=== PATIENT | male | born 1955 | race Caucasian/White ===

== ENCOUNTER 2018-07-16 20:22 | Observation (INO) | payer MEDICARE, OTHER ==
[~2018-07-16] VITALS: Ht 165.1 cm; Wt 117.9 kg
[~2018-07-16 20:22] MED LIST: ADULT LOW DOSE81 MG PO; ALLOPURINOL300 MG PO; ASPIRIN325 MG PO; GLIMEPIRIDE2 MG PO; GLIPIZIDE5 MG PO; LOPRESSOR50 MG PO; PROCARDIA XL60 MG PO; RESTORIL15 MG PO; TRICOR48 MG PO; ZOLOFT50 MG PO
--- OUTSIDE RECORDS SUMMARY | 2018-07-16 20:25 | XMS REPORT | Clinical Summary ---
Author Author [facility] Address Unknown Phone Unavailable Care Team Providers Care Drop Wire Builder Name Role Phone Pcp, No PCP Unavailable Allergies Not on File Medications Not on file Active Problems Not on file Encounters Care Team Description Date Type Specialty Aron Ny MD Aortocoronary bypass status 07/16/2018 Office Visit Cardiac Rehabilitation Aron Ny MD Aortocoronary bypass status 07/14/2018 Office Visit Cardiac Aron Barreto MD Aortocoronary bypass status 07/11/2018 Office Visit Cardiac Rehabilitation Aron Ny MD Aortocoronary bypass status 07/09/2018 Office Visit Cardiac Rehabilitation Aron Ny MD Aortocoronary bypass status 07/07/2018 Office Visit Cardiac Rehabilitation Aron Ny MD Abnormal echocardiogram (Primary Dx) 07/04/2018 Outside Orders Central Scheduling Aron Ny MD Aortocoronary bypass status 07/02/2018 Office Visit Cardiac Rehabilitation Aron Ny MD [place], Alexander L Aortocoronary bypass status 06/30/2018 Office Visit Cardiac Rehabilitation Aron Ny MD Aortocoronary bypass status 06/23/2018 Office Visit Cardiac Aron Barreto MD Aortocoronary bypass status 06/20/2018 Office Visit Cardiac Aron Barreto MD Aortocoronary bypass status (Primary Dx) 06/20/2018 Outside Orders Central Scheduling Aron Ny MD 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 Last Filed Vital Signs Not on file Plan of Treatment Care Team Description Date Type Specialty Aron Ny MD [address] [facility] [address] [place] [address] 07/28/2018 Appointment Radiology Results Not on fileafter 07/15/2017 Insurance Payer Benefit Subscriber ID Type Phone Address Plan / Group MEDICARE MEDICARE A xxxxxxxxxxx Medicare B
--- OUTSIDE RECORDS SUMMARY | 2018-07-16 20:25 | XMS REPORT ---
Author Author [facility] Address Unknown Phone Unavailable Care Team Providers Care Salon/Spa Manager Name Role Phone Paul HAMMONDS Unavailable Unavailable Problems This patient has no known problems. Allergies, Adverse Reactions, Alerts This patient has no known allergies or adverse reactions. Medications This patient has no known medications. Results Test Description Test Time Test Comments Text Results Atomic Results Result Comments CT ABDOMEN/PELVIS W [place] [id number] Patient Name: ALEXANDER WHITE MR #: [id number] : 1955 Age/Sex: 61/M Req #: [id number] Adm Physician: Ordered by: ZAID HAMMONDS MD Report #: [id number] Location: ER Room/Bed: Procedure: [id number] CT/CT ABDOMEN/PELVIS W Exam Date: 04/22/17 Exam Time: 0855 REPORT STATUS: Signed PROCEDURE: CT ABDOMEN AND PELVIS WITH CONTRAST TECHNIQUE: The abdomen and pelvis were scanned utilizing a multidetector helical scanner from the diaphragm to the lesser trochanter after the IV administration of 100 cc of Isovue 370 and the oral administration of Gastrografin and water. Coronal and sagittal multiplanar reformations were obtained. COMPARISON: None. INDICATIONS: RECTAL BLEEDING, RED STOOL FINDINGS: LOWER THORAX: Left lung base atelectasis. No parenchymal mass. HEPATOBILIARY: No focal hepatic lesions. No biliary ductal dilatation. SPLEEN: No splenomegaly. PANCREAS: No focal masses or ductal dilatation. ADRENALS: No adrenal nodules. KIDNEYS/URETERS: No hydronephrosis, obstructing stones, or solid mass lesions. Numerous bilateral small simple cysts are present in the kidneys. 5.9 mm calculus is present in the inferior pole of the right kidney, series 2 image 44. PELVIC ORGANS/BLADDER: Unremarkable. PERITONEUM / RETROPERITONEUM: No free air or fluid. LYMPH NODES: No lymphadenopathy. VESSELS: Unremarkable. GI TRACT: No distention or wall thickening. Multiple diverticuli are present in the descending and sigmoid colon, without adjacent soft tissue inflammatory changes. Normal appendix. BONES AND SOFT TISSUES: Unremarkable. Degenerative changes of the lumbar spine. IMPRESSION: No acute abnormality of the abdomen and pelvis. Diverticulosis without evidence of diverticulitis. Polycystic kidney disease. Nonobstructing right nephrolithiasis. Dictated by: No Aleman M.D. on 04/22/2017 at 11:46 Electronically approved by: No Aleman M.D. on 04/22/2017 at 11:46 Dictated By: NO ALEMAN MD [id number] Transcribed By: SUNNY on 04/22/17 1146 COPY TO: ZAID HAMMONDS MD
--- OUTSIDE RECORDS SUMMARY | 2018-07-16 20:25 | XMS REPORT | Encounter Summary ---
Author Organization Unknown Address [address] [place] [id number] Phone [phone] Reason for Visit Medical Complaint Instructions 1. Acute sinusitis rapid flu (A+B) rapid strep group A, throat 2. Acute right otitis media amoxicillin 875 mg-potassium clavulanate 125 mg tablet 3. Body mass index 40+ - severely obese A healthy lifestyle: care instructions Discussion Note: None recorded. Plan of Care Reminders Provider Appointments None recorded. Lab Rapid Flu (A+B) 01/11/2018 [facility] Rapid Strep Group a, Throat 01/11/2018 [facility] Referral None recorded. Procedures None recorded. Surgeries None recorded. Imaging None recorded. Medications Name Start Date allopurinol 300 mg tablet amoxicillin 875 mg-potassium clavulanate 125 mg tablet Take 1 tablet every 12 hours by oral route with meals for 10 days. Aspir-Abiola 325 mg tablet,delayed release Take 1 tablet every day by oral route. fenofibrate nanocrystallized 48 mg tablet glimepiride 2 mg tablet TAKE ONE (1) TABLET(S) BY MOUTH ONCE A DAY. metoprolol tartrate 50 mg tablet Nifedical XL 60 mg tablet,extended release sertraline 50 mg tablet TAKE ONE (1) TABLET(S) BY MOUTH DAILY. temazepam 15 mg capsule TK 1 C PO QD HS Medications Administered None recorded. Vitals Height Weight BMI Blood Pressure 5 ft 5 in 250 lbs 41.6 kg/m2 112/78 mm[Hg] Lab Results Date Name Specimen Result Interpretation Description Value Range Status Address Rapid Strep Group a, Throat Result negative [facility]: [address] [place] [address] Swab Location Left and Right tonsillar pillars [facility]: [address] [place] [address] Rapid Flu (A+B) Influenza a negative [facility]: [address] [place] [address] Influenza B negative [facility]: [address] [place] [address] Allergies Code Code System Name Reaction Severity Status Onset NKDA Problems Name Status Onset Date Source Intestinal Infectious Disease Active Encounter Streptococcal Sore Throat Active Encounter Dysfunction of Eustachian Tube Active Encounter Otitis Media Active Encounter Acute Otitis Media Active Encounter Common Cold Active Encounter Acute Sinusitis Active Encounter Acute Pharyngitis Active Encounter Upper Respiratory Infection Active Encounter Procedures Date Name Performed by Removal of Tonsils Information not available Vaccine List None recorded. Social History Smoking Status Never Smoker Past Encounters 01/11/2018 Acute Sinusitis; Acute Right Otitis Media; Body Mass Index 40+ - Severely Obese Data BRIDGETTE Knowles: [address] [facility], [place] [address], Ph. History of Present Illness Cybys-Qyagzrnlid-Wdxmtrr Reported By: Patient HPI: Duration: 5days; symptoms have worsened the last 2days. Modifying factors: OTC medication. Associated Symptoms: sore throat, fever, headache Notes: received 2 cortisone injections in bilateral knee approximately 10days ago Review of Systems Basic Reported By: Patient Constitutional: Constitutional: ; felt feverish Gdsi-Tpcl-Lbwge-Throat: Ears: ear pain. Nose: nose/sinus problems. Mouth/Throat: sore throat Respiratory: Respiratory: cough Neurologic: Neurologic: headache Physical Exam Adult Basic, Adult Male Complete Reported By: Patient Constitutional: General Appearance: healthy-appearing, well-nourished, well-developed. Level of Distress: NAD. Ambulation: ambulating normally Psychiatric: Mental Status: active and alert. Orientation: to time, to place, to person Eyes: Lids and Conjunctivae: non-injected, no discharge, no pallor Xvd-Eajy-Rgpbo-Throat: Ears: no lesions on external ear, no outer ear tenderness, EACs clear, TM erythematous. Nose: no lesions on external nose, nares patent, no septal deviation, nasal passages clear, no sinus tenderness, no nasal discharge. Lips, Teeth, and Gums: no mouth or lip ulcers, no bleeding gums, normal dentition. Oropharynx: moist mucous membranes, no erythema, no exudates, tonsils not enlarged Lungs: Respiratory effort: no dyspnea, no tachypnea, no use of accessory muscles, no intercostal retractions. Auscultation: breath sounds normal, good air movement Cardiovascular: Heart Auscultation: RRR, no murmurs Musculoskeletal:: Motor Strength and Tone: normal motor strength Neurologic: Gait and Station: normal gait, normal station Skin: Inspection and palpation: no rash, no lesions, no ulcer, no abnormal nevi, no induration, no nodules; on visible skin
--- OUTSIDE RECORDS SUMMARY | 2018-07-16 20:25 | XMS REPORT | Continuity of Care Document ---
Author Author [facility] Address Unknown Phone Unavailable Problems Problem Status Onset Date Classification Date Reported Comments Source Body mass index 40+ - severely obese 01/11/2018 Diagnosis 01/11/2018 [facility] Acute right otitis media 01/11/2018 Diagnosis 01/11/2018 [facility] Acute sinusitis 01/11/2018 Diagnosis 01/11/2018 [facility] Intestinal Infectious Disease Problem 01/11/2018 [facility] Streptococcal Sore Throat Problem 01/11/2018 [facility] Dysfunction of Eustachian Tube Problem 01/11/2018 [facility] Otitis Media Problem 01/11/2018 [facility] Acute Otitis Media Problem 01/11/2018 [facility] Common Cold Problem 01/11/2018 [facility] Acute Sinusitis Problem 01/11/2018 [facility] Acute Pharyngitis Problem 01/11/2018 [facility] Upper Respiratory Infection Problem 01/11/2018 [facility] Medications Medication Details Route Status Patient Instructions Ordering Provider Order Date Source Allopurinol 300 MG Oral Tablet allopurinol 300 mg tablet Active [facility] Amoxicillin 875 MG / Clavulanate 125 MG Oral Tablet amoxicillin 875 mg-potassium clavulanate 125 mg tablet Take 1 tablet every 12 hours by oral route with meals for 10 days. Active [facility] Aspirin 325 MG Delayed Release Oral Tablet Aspir-Abiola 325 mg tablet,delayed release Take 1 tablet every day by oral route. Active [facility] Fenofibrate 48 MG Oral Tablet fenofibrate nanocrystallized 48 mg tablet Active [facility] glimepiride 2 MG Oral Tablet glimepiride 2 mg tablet TAKE ONE (1) TABLET(S) BY MOUTH ONCE A DAY. Active [facility] Metoprolol Tartrate 50 MG Oral Tablet metoprolol tartrate 50 mg tablet Active [facility] Osmotic 24 HR Nifedipine 60 MG Extended Release Oral Tablet [Nifedical] Nifedical XL 60 mg tablet,extended release Active [facility] Sertraline 50 MG Oral Tablet sertraline 50 mg tablet TAKE ONE (1) TABLET(S) BY MOUTH DAILY. Active [facility] Temazepam 15 MG Oral Capsule temazepam 15 mg capsule TK 1 C PO QD HS Active [facility] Allergies, Adverse Reactions, Alerts Substance Category Reaction Severity Reaction type Status Date Reported Comments Source Immunizations Immunization Date Given Site Status Last Updated Comments Source Results Order Name Results Value Reference Range Date Interpretation Comments Source RESULT negative 01/11/2018 [facility] SWAB LOCATION Left and Right tonsillar pillars 01/11/2018 [facility] Influenza A negative 01/11/2018 [facility] Influenza B negative 01/11/2018 [facility] Vital Signs Vital Sign Value Date Comments Source Diastolic (mm Hg) 78 01/11/2018 [facility] Height 65 01/11/2018 [facility] Systolic (mm Hg) 112 01/11/2018 [facility] Weight 250 01/11/2018 [facility] Encounters Location Location Details Encounter Type Encounter Number Reason For Visit Attending Provider ADM Date DC Date Status Source [place] - [facility] - [id number] Data [place] ARCHITECTURAL MANAGER: [address] [place] [address], Ph. [id number] Data [place] 01/11/2018 [facility] Procedures Procedure Code Date Perfomer Comments Source Removal of Tonsils 118[address] [facility]
[2018-07-16 21:07] LABS: BASOPHILS % 0.5 % (0.0-1.0); EOSINOPHILS # (AUTO) 0.1 (0.0-0.4); EOSINOPHILS % 1.4 % (0.0-6.0); HEMATOCRIT 46.8 % (38.2-49.6); HEMOGLOBIN 15.7 g/dL (14.0-18.0); LYMPHOCYTES # (AUTO) 1.1 (1.0-3.2); LYMPHOCYTES % 13.6 % (18.0-39.1); MEAN CORPUSCULAR HEMOGLOBIN 29.8 pg (28-32); MEAN CORPUSCULAR HGB CONC 33.5 g/dL (31-35); MEAN CORPUSCULAR VOLUME 88.8 fL (81-99); MONOCYTES # (AUTO) 0.7 (0.2-0.8); MONOCYTES % 8.2 % (4.4-11.3); NEUTROPHILS # (AUTO) 6.1 (2.1-6.9); NEUTROPHILS % 75.9 % (38.7-80.0); PLATELET COUNT 256 x10e3/uL (140-360); RED BLOOD COUNT 5.27 x10e6/uL (4.3-5.7); RED CELL DISTRIBUTION WIDTH 17.2 % (11.7-14.4)
[2018-07-16 21:18] LABS: INR 0.88; PROTHROMBIN TIME 12.8 seconds (11.9-14.5)
[2018-07-16 21:19] LABS: PARTIAL THROMBOPLASTIN TIME 27.5 seconds (23.8-35.5)
[2018-07-16 21:20] LABS: BILIRUBIN,URINE NEGATIVE (NEGATIVE); CLARITY,URINE CLEAR (CLEAR); COLOR,URINE YELLOW (YELLOW); KETONES,URINE NEGATIVE (NEGATIVE); LEUKOCYTE ESTERASE ,URINE NEGATIVE (NEGATIVE); NITRITE,URINE NEGATIVE (NEGATIVE); PROTEIN,URINE DIPSTICK 2+ (NEGATIVE); URINE UROBILINOGEN 0.2 mg/dL (0.2 - 1)
[2018-07-16 21:28] LABS: ALANINE AMINOTRANSFERASE 25 IU/L (0-55); ALBUMIN 3.9 g/dL (3.5-5.0); ALKALINE PHOSPHATASE 41 IU/L (40-150); ANION GAP 17.3 mmol/L (8-16); BLOOD UREA NITROGEN 25 mg/dL (7-26); BUN/CREATININE RATIO 21 (6-25); CALCIUM 9.5 mg/dL (8.4-10.2); CARBON DIOXIDE 21 mmol/L (22-29); CHLORIDE 104 mmol/L (98-107); CREATINE KINASE 100 IU/L (30-200); EST GLOMERULAR FILTRATION RATE > 60 ML/MIN (60-); GLUCOSE 148 mg/dL (74-118); POTASSIUM 4.3 mmol/L (3.5-5.1); SODIUM 138 mmol/L (136-145)
[2018-07-16 21:29] LABS: WBC,URINE (MAN) 0-5 /HPF (0-5)
[2018-07-16 21:30] LABS: EPITHELIAL CELLS,URINE RARE /LPF; HYALINE CASTS 0-1 (0-1)
--- NOTE | 2018-07-16 21:55 | Diagnostic Imaging Report ---
EXAMINATION: CHEST SINGLE (PORTABLE) INDICATION: Chest pain. COMPARISON: None FINDINGS: AP view TUBES and LINES: None. LUNGS: Lungs are well inflated. Lungs are clear. There is no evidence of pneumonia or pulmonary edema. PLEURA: No pleural effusion or pneumothorax. HEART AND MEDIASTINUM: The cardiomediastinal silhouette is unremarkable. BONES AND SOFT TISSUES: No acute osseous lesion. Median sternotomy wires. Soft tissues are unremarkable. UPPER ABDOMEN: No free air under the diaphragm. IMPRESSION: No acute thoracic abnormality. Signed by: DR. Paul Goodrich MD on 07/16/2018 9:52 PM
[2018-07-16] MEDS ORDERED: HYDROCODONE/APAP 10MG-325MG TAB PO ONE (22:45)
[2018-07-16] MEDS ORDERED: ONDANSETRON HCL INJ 2 MG/ML VIAL IV PRN (23:45)
[2018-07-16] MEDS ORDERED: HYDROCODONE/APAP 10MG-325MG TAB PO PRN (23:45)
--- OUTSIDE RECORDS SUMMARY | 2018-07-16 23:45 | XMS REPORT | Clinical Summary ---
Author Author ARMANDO [facility] Address Unknown Phone Unavailable Care Team Providers Care Digital Strategist Name Role Phone Pcp, No PCP Unavailable [...] Date Type Specialty Aron Ny MD [address] [facility] [address] [place] [address] 07/28/2018 Appointment Radiology Results Not on fileafter 07/15/2017 Insurance Payer Benefit Subscriber ID Type Phone Address Plan / Group MEDICARE MEDICARE A xxxxxxxxxxx Medicare B
[2018-07-17 00:16] VITALS: BP 179/81
--- NOTE | 2018-07-17 00:16 | NUR ---
patient is a new admit that arrived via stretcher. patient is awake and talking. patient has been helped into the bed. bed is in the lowest position and call boothe is within reach. will continue to monitor patient.
--- NOTE | 2018-07-17 00:30 | NUR ---
Patient is complaining of pain in the chest. Patient states current pain medications are not effective. Patient's blood pressure is also elevated. paged awaiting call back.
--- NOTE | 2018-07-17 02:09 | NUR ---
returned phone call. received new orders. will continue to monitor patient's patients blood pressure.
[2018-07-17] MEDS ORDERED: MORPHINE SULFATE 2 MG/ML SYR IV PRN (02:15)
[2018-07-17] MEDS ORDERED: CLONIDINE HCL 0.1 MG TAB PO PRN (02:15)
[2018-07-17] MEDS ORDERED: MORPHINE SULFATE INJ 4 MG/ML INJ IV PRN (03:00)
[2018-07-17 04:00] VITALS: BP 180/78
--- NOTE | 2018-07-17 04:00 | NUR ---
patient's blood pressure is elevated. Will medicate with prn blood pressure medication and continue to monitor patient.
[2018-07-17 07:05] LABS: CREATINE KINASE MB 1.4 ng/mL (0-5.0)
[2018-07-17 08:01] VITALS: BP 157/88
[2018-07-17] MEDS ORDERED: ASPIRIN 81 MG ENTERIC COATED PO SCH (09:00)
--- NOTE | 2018-07-17 10:04 | NUR ---
Sander Machine to bedside to discuss plan of care with patient/family. CM/SW role and care transitions discussed. Anticipated discharge plan discussed along with duration of care. CM/SW discussed patients right to make decisions in care. CM/SW work hours given. Patient lives: with [facility] Admit/Transfer: thru ED, from home POA/Emergency contact: Leona Lawtey [phone] Current/Previous Home Health: none PCP/Follow-up Care: Dr. Saldaña Current/Previous DME: none Other Services: none Employment Status: unemployed at this time; "in between jobs" Areas of Concerns: none Referral Needs: none Education Needs: none IMM/MATA given and signed (if applicable): MATA Goal for discharge: home as soon as possible; will provide transportation CM/SW left business card at the bedside with contact information. Name and number was also written on the patients whiteboard. Patient verbalized understanding of discussion. CM will follow-up with ongoing discharge and transition of care needs.
[2018-07-17 11:23] VITALS: BP 188/90
[2018-07-17 12:42] VITALS: BP 188/90
--- NOTE | 2018-07-17 14:19 | Consultation ---
DATE OF CONSULTATION: July 17, 2018 CARDIOLOGY CONSULTATION REQUESTING PHYSICIAN: Dr. Janis Saldaña. REASON FOR CONSULT: Chest pain. HISTORY OF PRESENT ILLNESS: This is a 63-year-old man with history of coronary artery disease status post 4-vessel CABG February of this year, hypertension, hyperlipidemia, and diabetes mellitus, who presents with complaints of chest pain. The patient reports he has been doing well since his bypass surgery. He is participating in cardiac rehab Saturday/Saturday/Saturday without symptoms. Yesterday evening he was sitting on the couch when he had a bout of coughing. He subsequently developed 10 out of 10 sharp pain in his right chest. He applied heat without improvement. This was not associated with shortness of breath or palpitations and is reproducible on palpation and worse with movement as well as deep inspiration. Given the pain, he presented to the ER for further evaluation. The patient denied any edema, orthopnea or PND. REVIEW OF SYSTEMS: Negative except as per HPI. PAST MEDICAL HISTORY 1. Coronary artery disease status post 4-vessel CABG February of 2018. 2. Hypertension. 3. Hyperlipidemia. 4. Diabetes mellitus. PAST SURGICAL HISTORY 1. Umbilical hernia repair. 2. Four-vessel CABG. 3. Lipoma surgery. ALLERGIES: NO KNOWN DRUG ALLERGIES. MEDICATIONS: Please see medication list. SOCIAL HISTORY: Denies tobacco, alcohol or illicit drugs. FAMILY HISTORY: Noncontributory to current illness. PHYSICAL EXAMINATION VITAL SIGNS: Temperature 97.9 degrees, pulse 68, respiratory rate 16, blood pressure 188/90, oxygen saturation 98% on room air. GENERAL: Obese gentleman in no acute distress. Awake and alert. HEENT: Normocephalic, atraumatic. Pupils equal, no scleral icterus. NECK: Supple. No thyromegaly or cervical lymphadenopathy, no carotid bruits. LUNGS: Clear to auscultation bilaterally. No wheezes or crackles. CARDIOVASCULAR: Normal rate, regular rhythm. No murmur. Normal S1 and S2. ABDOMEN: Soft, nontender. EXTREMITIES: No edema. NEURO: Nonfocal exam. ELECTROCARDIOGRAM: Normal sinus rhythm with nonspecific ST-T wave abnormalities. CHEST X-RAY: No acute thoracic abnormality. IMPRESSION 1. Chest pain, likely musculoskeletal. 2. Coronary artery disease status post 4-vessel coronary artery bypass graft February of 2018. 3. Hypertension. 4. Hyperlipidemia. 5. Diabetes mellitus. RECOMMENDATIONS: Trend cardiac enzymes to rule out myocardial infarction. Echocardiogram to evaluate for regional wall motion abnormalities as well as ejection fraction. Chest x-ray did not demonstrate any acute thoracic abnormalities. Patient's chest pain is most likely musculoskeletal in etiology given description. If echocardiogram is unremarkable and patient rules out for myocardial infarction, no further cardiac evaluation is indicated at this time. Continue home cardiac medications for blood pressure control. Thank you for this consult. We will continue to follow. Job#: [id number]
[2018-07-17 14:26] LABS: CREATINE KINASE 59 IU/L (30-200)
[2018-07-17 15:52] VITALS: BP 180/88
[2018-07-17] MEDS ORDERED: METOPROLOL TARTRATE 50 MG TAB PO SCH (17:00)
[2018-07-18] MEDS ORDERED: NIFEDIPINE CR 30 MG TAB PO SCH (09:00)
== END 2018-07-17 17:45 | disposition home or self-care (01) ==
LOC: ER 20:22 → ERHOLD 23:43 → IMCU 07-17 00:18
PROVIDERS: ADMIT Internal Medicine; ATTEND Internal Medicine
DX: R07.9 Chest pain, unspecified (principal); I25.10 Atherosclerotic heart disease of native coronary artery without angina pectoris; Z95.1 Presence of aortocoronary bypass graft; I11.9 Hypertensive heart disease without heart failure; I35.1 Nonrheumatic aortic (valve) insufficiency; E78.5 Hyperlipidemia, unspecified; E11.9 Type 2 diabetes mellitus without complications; Z79.84 Long term (current) use of oral hypoglycemic drugs; F32.9 Major depressive disorder, single episode, unspecified; Z79.82 Long term (current) use of aspirin
CPT/HCPCS: 36415 ×2; 71045; 80053; 81001; 82550 ×2; 82553 ×2; 83880; 84484 ×2; 85025; 85610; 85730; 93005; 93306; 99283; G0378 ×2; J2270

== ENCOUNTER 2020-08-01 05:24 | Observation (INO) | payer MEDICARE, OTHER ==
[~2020-08-01] VITALS: Ht 165.1 cm; Wt 111.1 kg
[~2020-08-01 05:24] MED LIST changes: +ASPIRIN CHEW81 MG PO; +BRILINTA90 MG PO; +LISINOPRIL10 MG PO; +PRAVACHOL20 MG PO
[2020-08-01] MEDS ORDERED: DEXAMETHASONE SOD PHOS 10 MG/1 ML VIAL ONE (05:51)
[2020-08-01] MEDS ORDERED: GABAPENTIN 300 MG CAP ONE (05:51)
[2020-08-01] MEDS ORDERED: CELECOXIB 200 MG CAP ONE (05:51)
[2020-08-01] MEDS ORDERED: VANCOMYCIN HCL 1,000 MG ONE (06:12)
[2020-08-01] MEDS ORDERED: TRANEXAMIC ACID 1,000 MG/10 ML ML ONE (06:13)
[2020-08-01] MEDS ORDERED: SODIUM CHLORIDE 0.9% 500ML 500 ML ONE (06:13)
[2020-08-01] MEDS ORDERED: CEFAZOLIN SOD 1 GM/NS 50ML 100 ML IV ONE (06:13)
[2020-08-01] MEDS ORDERED: ROPIVACAINE 246.25 MG, EPINEPHRINE HCL 1:1000 1ML 0.5 MG, CLONIDINE HCL 0.08 MG, KETORO... INJ ONE ×5 (07:30)
[2020-08-01] MEDS ORDERED: HYDROCODONE/APAP 5MG-325MG TAB PO PRN (08:15)
[2020-08-01] MEDS ORDERED: DOCUSATE SODIUM 100 MG CAP PO PRN (08:15)
[2020-08-01] MEDS ORDERED: ACETAMINOPHEN 650 MG SUPP PR PRN (08:15)
[2020-08-01] MEDS ORDERED: ONDANSETRON HCL INJ 2MG/ML 2ML 2 MG/ML VIAL IV PRN (08:15)
[2020-08-01] MEDS ORDERED: KETOROLAC TROMETHAMINE 30 MG/ML VIAL IV PRN (08:15)
[2020-08-01] MEDS ORDERED: DIPHENHYDRAMINE HCL INJ 50 MG/ML VIAL IV PRN (08:15)
[2020-08-01 10:15] VITALS: BP 139/85
[2020-08-01 12:00] VITALS: BP 121/68
[2020-08-01] MEDS: SODIUM CHLORIDE 0.9% 1000ML 1,000 ML IV SCH ×2 (12:43→21:51)
[2020-08-01] MEDS: CELECOXIB 200 MG CAP PO SCH ×2 (12:43→16:11)
[2020-08-01] MEDS ORDERED: SEVOFLURANE INHAL SOLN 250 ML PEN BTL ONE (12:54)
[2020-08-01] MEDS ORDERED: LIDOCAINE HCL 2% LOCAL INJ 5 ML SDV VIAL INJ ONE (12:54)
[2020-08-01] MEDS ORDERED: PROPOFOL IV EMULSION 10 MG/ML 20 ML VIAL ONE (12:54)
[2020-08-01] MEDS ORDERED: ONDANSETRON HCL INJ 2MG/ML 2ML 2 MG/ML VIAL ONE (12:54)
[2020-08-01 16:00] VITALS: BP 126/70
[2020-08-01] MEDS: CEFAZOLIN SOD 1 GM/NS 50ML 50 ML IV SCH ×2 (16:07→21:51)
[2020-08-01] MEDS: ASPIRIN 325 MG TAB PO SCH (16:32)
[2020-08-01 17:30] VITALS: BP 139/85
[2020-08-01 20:00] VITALS: BP 140/77
[2020-08-01 20:58] VITALS: BP 140/77
[2020-08-01] MEDS ORDERED: ZOLPIDEM TARTRATE 5 MG TAB PO PRN (21:00)
[2020-08-02 04:00] VITALS: BP 123/67
[2020-08-02] MEDS: CEFAZOLIN SOD 1 GM/NS 50ML 50 ML IV SCH (05:21)
[2020-08-02 05:45] LABS: HEMATOCRIT 42.4 % (38.2-49.6); HEMOGLOBIN 14.4 g/dL (14.0-18.0)
[2020-08-02] MEDS: HYDROCODONE/APAP 7.5MG-325MG 1 EA TAB PO PRN ×2 (06:12→10:41)
[2020-08-02] MEDS: SODIUM CHLORIDE 0.9% 1000ML 1,000 ML IV SCH (06:46)
[2020-08-02] MEDS ORDERED: ACETAMINOPHEN 1000 MG/100 ML IV PRN (08:15)
[2020-08-02 08:34] VITALS: BP 146/77
[2020-08-02 08:35] VITALS: BP 146/77
[2020-08-02] MEDS: ASPIRIN 325 MG TAB PO SCH (08:43)
[2020-08-02] MEDS: CELECOXIB 200 MG CAP PO SCH (08:44)
[2020-08-02] MEDS ORDERED: ONDANSETRON HCL 4 MG ORAL DISINTEGRATING TAB PO PRN (11:15)
[2020-08-02 12:00] VITALS: BP_SYST 153; BP_SYST 163; BP_DIAS 86
== END 2020-08-02 12:45 | disposition home or self-care (01) ==
LOC: OR 05:24 → PACU V 08:12 → MED/SURG 09:33
PROVIDERS: ADMIT Specialist; ATTEND Specialist
DX: M17.12 Unilateral primary osteoarthritis, left knee (principal); I10 Essential (primary) hypertension; E11.9 Type 2 diabetes mellitus without complications; Z95.5 Presence of coronary angioplasty implant and graft; Z95.1 Presence of aortocoronary bypass graft; Z83.3 Family history of diabetes mellitus; Z80.9 Family history of malignant neoplasm, unspecified; E66.01 Morbid (severe) obesity due to excess calories; Z68.41 Body mass index [BMI] 40.0-44.9, adult; Z20.828 Contact with and (suspected) exposure to other viral communicable diseases; Z01.810 Encounter for preprocedural cardiovascular examination; Z01.812 Encounter for preprocedural laboratory examination
CPT/HCPCS: 27447; 36415 ×2; 73560; 82948 ×2; 85014; 85018; 86850; 86900; 86920; 93005; 97110; 97116 ×2; 97161; C1713; C1776 ×2; G0378 ×2; J0171; J0690 ×2; J1100; J1885 ×2; J2795; J3370; J7030; J7040; U0002; J2001; J2405

== ENCOUNTER 2020-09-30 09:57 | Outpatient (RCR) | payer MEDICARE, BC | END 2020-10-02 | LOC: PT 09:57 | PROVIDERS: ATTEND Physician Assistant | DX: Z96.652 Presence of left artificial knee joint (principal); Z47.1 Aftercare following joint replacement surgery; M25.562 Pain in left knee; M25.662 Stiffness of left knee, not elsewhere classified; R26.89 Other abnormalities of gait and mobility; M62.81 Muscle weakness (generalized) ==

== ENCOUNTER 2020-10-24 09:46 | Outpatient (RCR) | payer MEDICARE, BC | END 2020-11-02 | LOC: PT 09:46 | PROVIDERS: ATTEND Physician Assistant | DX: Z47.1 Aftercare following joint replacement surgery (principal); Z96.652 Presence of left artificial knee joint; M25.562 Pain in left knee; M25.662 Stiffness of left knee, not elsewhere classified; R26.89 Other abnormalities of gait and mobility; M62.81 Muscle weakness (generalized) | CPT/HCPCS: 97139 ==

== ENCOUNTER 2020-12-06 06:07 | Observation (INO) | payer MEDICARE, BC ==
[2020-12-01 11:58] LABS: BASOPHILS % 0.4 % (0.0-1.0); EOSINOPHILS # (AUTO) 0.2 (0.0-0.4); EOSINOPHILS % 2.2 % (0.0-6.0); HEMATOCRIT 46.1 % (38.2-49.6); HEMOGLOBIN 15.2 g/dL (14.0-18.0); LYMPHOCYTES # (AUTO) 1.3 (1.0-3.2); LYMPHOCYTES % 16.2 % (18.0-39.1); MEAN CORPUSCULAR HEMOGLOBIN 31.3 pg (28-32); MEAN CORPUSCULAR VOLUME 94.9 fL (81-99); MONOCYTES # (AUTO) 0.7 (0.2-0.8); MONOCYTES % 8.9 % (4.4-11.3); NEUTROPHILS # (AUTO) 5.6 (2.1-6.9); NEUTROPHILS % 71.7 % (38.7-80.0); PLATELET COUNT 251 x10e3/uL (140-360); RED BLOOD COUNT 4.86 x10e6/uL (4.3-5.7); RED CELL DISTRIBUTION WIDTH 14.1 % (11.7-14.4)
[2020-12-01 12:12] LABS: ANION GAP 15.1 mmol/L (8-16); BLOOD UREA NITROGEN 21 mg/dL (7-26); BUN/CREATININE RATIO 24 (6-25); CALCIUM 8.6 mg/dL (8.4-10.2); CARBON DIOXIDE 22 mmol/L (22-29); CHLORIDE 108 mmol/L (98-107); CREATININE, SERUM 0.88 mg/dL (0.72-1.25); EST GLOMERULAR FILTRATION RATE > 60 ML/MIN (60-); GLUCOSE 99 mg/dL (74-118); POTASSIUM 4.1 mmol/L (3.5-5.1); SODIUM 141 mmol/L (136-145)
[~2020-12-06] VITALS: Ht 165.1 cm; Wt 109.8 kg
[~2020-12-06 06:07] MED LIST changes: +SODIUM CHLORIDE 0.9% 500ML 500 ML ONE; +TRANEXAMIC ACID 1,000 MG/10 ML ML ONE; +VANCOMYCIN HCL 1,000 MG ONE
[2020-12-06] MEDS ORDERED: CEFAZOLIN SOD 1 GM/NS 50ML 100 ML IV ONE (06:25)
[2020-12-06] MEDS ORDERED: DEXAMETHASONE SOD PHOS 10 MG/1 ML VIAL ONE (06:58)
[2020-12-06] MEDS ORDERED: GABAPENTIN 300 MG CAP ONE (06:58)
[2020-12-06] MEDS ORDERED: ROPIVACAINE 246.25 MG, EPINEPHRINE HCL 1:1000 1ML 0.5 MG, CLONIDINE HCL 0.08 MG, KETORO... INJ ONE ×5 (07:00)
[2020-12-06] MEDS ORDERED: ACETAMINOPHEN 1000 MG/100 ML 100 ML IV ONE (08:10)
[2020-12-06] MEDS ORDERED: ACETAMINOPHEN 650 MG SUPP PR PRN (09:00)
[2020-12-06] MEDS ORDERED: HYDROCODONE/APAP 5MG-325MG TAB PO PRN (09:00)
[2020-12-06] MEDS ORDERED: DIPHENHYDRAMINE HCL INJ 50 MG/ML VIAL IV PRN (09:00)
[2020-12-06] MEDS ORDERED: ZOLPIDEM TARTRATE 5 MG TAB PO PRN (09:00)
[2020-12-06] MEDS ORDERED: ONDANSETRON HCL INJ 2MG/ML 2ML 2 MG/ML VIAL IV PRN (09:00)
[2020-12-06] MEDS ORDERED: DOCUSATE SODIUM 100 MG CAP PO PRN (09:00)
[2020-12-06] MEDS: ASPIRIN 325 MG TAB PO SCH ×2 (09:00→18:16)
[2020-12-06] MEDS ORDERED: FENTANYL CITRATE/PF 100MCG/2 ML INJ ONE (09:42)
[2020-12-06] MEDS ORDERED: LABETALOL HCL 20 ML ONE (10:02)
[2020-12-06] MEDS ORDERED: ROPIVACAINE 0.5% 5 MG/ML 30 ML SDV ONE (12:36)
[2020-12-06] MEDS ORDERED: LIDOCAINE 2%/ EPINEPHRINE 20ML MDV ONE (12:36)
[2020-12-06 14:00] VITALS: BP_SYST 124; BP_SYST 140; BP_DIAS 65; BP_DIAS 81
[2020-12-06 14:30] VITALS: BP 140/81
[2020-12-06] MEDS ORDERED: KETOROLAC TROMETHAMINE 30 MG/ML VIAL ONE (15:19)
[2020-12-06] MEDS ORDERED: SODIUM CHLORIDE 0.9% 1000ML 1,000 ML ONE (15:19)
[2020-12-06] MEDS: KETOROLAC TROMETHAMINE 30 MG/ML VIAL IV PRN (15:21)
[2020-12-06] MEDS: SODIUM CHLORIDE 0.9% 1000ML 1,000 ML IV SCH ×2 (15:21→19:00)
[2020-12-06 16:00] VITALS: BP 119/69
[2020-12-06] MEDS: CEFAZOLIN SOD 1 GM/NS 50ML 50 ML IV SCH (18:16)
[2020-12-06] MEDS ORDERED: SEVOFLURANE INHAL SOLN 250 ML PEN BTL ONE (19:22)
[2020-12-06] MEDS ORDERED: ONDANSETRON HCL INJ 2MG/ML 2ML 2 MG/ML VIAL ONE (19:22)
[2020-12-06] MEDS ORDERED: PROPOFOL IV EMULSION 10 MG/ML 20 ML VIAL ONE (19:22)
[2020-12-06] MEDS ORDERED: LIDOCAINE HCL 2% LOCAL INJ 5 ML SDV VIAL INJ ONE (19:22)
[2020-12-06] MEDS ORDERED: POVIDONE IODINE 0.05% 0.05 % ML PO ONE (19:22)
[2020-12-06] MEDS ORDERED: EPHEDRINE SULFATE INJ 50 MG/ML VIAL ONE (19:22)
[2020-12-06] MEDS ORDERED: CEPACOL SORE T1 EAC5 PO (20:42)
[2020-12-06 20:43] VITALS: BP 108/54
[2020-12-06 20:57] VITALS: BP 108/54
[2020-12-06] MEDS ORDERED: SERTRALINE HCL 50 MG TAB PO SCH (21:00)
[2020-12-06] MEDS ORDERED: PRAVASTATIN 20 MG TAB PO SCH (21:00)
[2020-12-06] MEDS ORDERED: TEMAZEPAM 15 MG CAP PO SCH (21:00)
[2020-12-06] MEDS ORDERED: ALLOPURINOL 300 MG TAB PO SCH (21:00)
[2020-12-06] MEDS: METOPROLOL TARTRATE 50 MG TAB PO SCH (21:35)
[2020-12-06] MEDS: CEPACOL SORE THROAT LOZENGES PO PRN (22:10)
[2020-12-06] MEDS: HYDROCODONE/APAP 7.5MG-325MG 1 EA TAB PO PRN (23:53)
[2020-12-07] VITALS: BP 106/48
[2020-12-07] MEDS: CEPACOL SORE THROAT LOZENGES PO PRN (01:27)
[2020-12-07] MEDS: CEFAZOLIN SOD 1 GM/NS 50ML 50 ML IV SCH ×2 (01:27→08:11)
[2020-12-07] MEDS: SODIUM CHLORIDE 0.9% 1000ML 1,000 ML IV SCH (03:04)
[2020-12-07 04:00] VITALS: BP 127/72
[2020-12-07 05:48] LABS: HEMATOCRIT 38.9 % (38.2-49.6); HEMOGLOBIN 12.9 g/dL (14.0-18.0)
[2020-12-07] MEDS: HYDROCODONE/APAP 7.5MG-325MG 1 EA TAB PO PRN (06:31)
[2020-12-07 08:00] VITALS: BP 141/80
[2020-12-07] MEDS: METOPROLOL TARTRATE 50 MG TAB PO SCH (08:14)
[2020-12-07] MEDS: ASPIRIN 325 MG TAB PO SCH (08:14)
[2020-12-07 08:15] VITALS: BP 141/86
[2020-12-07] MEDS ORDERED: TICAGRELOR 90 MG TABLET PO SCH (09:00)
[2020-12-07] MEDS ORDERED: GLIMEPIRIDE 2 MG TAB PO SCH (09:00)
[2020-12-07] MEDS ORDERED: ACETAMINOPHEN 1000 MG/100 ML IV PRN (09:00)
[2020-12-07] MEDS ORDERED: LISINOPRIL 10 MG TAB PO SCH (09:00)
[2020-12-07] MEDS: KETOROLAC TROMETHAMINE 30 MG/ML VIAL IV PRN (09:36)
[2020-12-07] MEDS ORDERED: ONDANSETRON HCL 4 MG ORAL DISINTEGRATING TAB PO PRN (12:30)
== END 2020-12-07 12:29 | disposition home or self-care (01) ==
LOC: OR 06:07 → PACU V 08:53 → MED/SURG 14:30
PROVIDERS: ADMIT Specialist; ATTEND Specialist
DX: M17.0 Bilateral primary osteoarthritis of knee (principal); I25.2 Old myocardial infarction; I25.10 Atherosclerotic heart disease of native coronary artery without angina pectoris; M10.9 Gout, unspecified; E11.9 Type 2 diabetes mellitus without complications; Z20.822 Contact with and (suspected) exposure to COVID-19; I10 Essential (primary) hypertension; Z95.1 Presence of aortocoronary bypass graft; Z01.818 Encounter for other preprocedural examination
CPT/HCPCS: 27447; 36415 ×3; 73560; 80048; 82948 ×2; 85014; 85018; 85025; 86850; 86900; 86920; 93005; 97110; 97116 ×2; 97161; 97530; C1713 ×2; C1776 ×2; G0378 ×2; J0131; J0171; J0690 ×2; J1100; J1885 ×2; J2001 ×2; J2405; J2704; J2795; J3010; J3370; J3490; J7030; J7040; U0002

== ENCOUNTER → 2021-02-01 | Outpatient (RCR) | payer MEDICARE, BC ==
[~2021-02-01] MED LIST changes: +CEPACOL SORE T1 EAC5 PO; -SODIUM CHLORIDE 0.9% 500ML 500 ML ONE; -TRANEXAMIC ACID 1,000 MG/10 ML ML ONE; -VANCOMYCIN HCL 1,000 MG ONE
== END ==
LOC: PT 01-05 14:03
PROVIDERS: ATTEND Physician Assistant
DX: Z47.1 Aftercare following joint replacement surgery (principal); Z96.651 Presence of right artificial knee joint

== ENCOUNTER 2021-03-03 13:42 | Outpatient (RCR) | payer MEDICARE, BC | END 2021-03-04 | LOC: PT 13:42 | PROVIDERS: ATTEND Physician Assistant | DX: Z96.651 Presence of right artificial knee joint (principal); Z47.1 Aftercare following joint replacement surgery; M25.561 Pain in right knee; M62.81 Muscle weakness (generalized) | CPT/HCPCS: 97139 ==

== ENCOUNTER → 2023-06-04 | Day surgery (SDC) | payer MEDICARE ==
[2023-05-30 08:29] LABS: BASOPHILS % 0.4 % (0.0-1.0); EOSINOPHILS # (AUTO) 0.1 (0.0-0.4); EOSINOPHILS % 1.5 % (0.0-6.0); HEMATOCRIT 43.1 % (38.2-49.6); HEMOGLOBIN 15.4 g/dL (14.0-18.0); LYMPHOCYTES # (AUTO) 0.9 (1.0-3.2); MEAN CORPUSCULAR HEMOGLOBIN 32.8 pg (28-32); MEAN CORPUSCULAR HGB CONC 35.7 g/dL (31-35); MEAN CORPUSCULAR VOLUME 91.9 fL (81-99); MONOCYTES # (AUTO) 0.7 (0.2-0.8); MONOCYTES % 8.5 % (4.4-11.3); NEUTROPHILS # (AUTO) 6.1 (2.1-6.9); PLATELET COUNT 264 x10e3/uL (140-360); RED BLOOD COUNT 4.69 x10e6/uL (4.3-5.7); RED CELL DISTRIBUTION WIDTH 13.9 % (11.7-14.4); WHITE BLOOD COUNT 7.79 x10e3/uL (4.8-10.8)
[~2023-06-04] MED LIST changes: +FENTANYL CITRATE/PF 100MCG/2 ML INJ ONE; +LACTATED RINGER'S 1,000 ML ONE; +MIDAZOLAM HCL 2 MG/2 ML VIAL ONE; +MULTI-VITAMIN1 EACH PO; +TEMAZEPAM15 MG PO
[2023-06-04 11:03] VITALS: TEMP 97.4
[2023-06-04 11:15] VITALS: BP 178/70; PULSE 70; RESP 16; O2SAT 97
== END | disposition home or self-care (01) ==
LOC: OR 08:05
PROVIDERS: ATTEND Ophthalmology
DX: H25.12 Age-related nuclear cataract, left eye (principal); I25.810 Atherosclerosis of coronary artery bypass graft(s) without angina pectoris; I10 Essential (primary) hypertension; E11.9 Type 2 diabetes mellitus without complications; E66.01 Morbid (severe) obesity due to excess calories; F32.A Depression, unspecified; Z01.812 Encounter for preprocedural laboratory examination; Z79.82 Long term (current) use of aspirin; Z79.84 Long term (current) use of oral hypoglycemic drugs; Z95.1 Presence of aortocoronary bypass graft; Z95.5 Presence of coronary angioplasty implant and graft
CPT/HCPCS: 36415 ×2; 66984; 82948; 85025; J2250; J3010; J7121; V2632

== ENCOUNTER → 2024-07-20 | Outpatient (REF) | payer MEDICARE ==
[~2024-07-20] MED LIST changes: -FENTANYL CITRATE/PF 100MCG/2 ML INJ ONE; -LACTATED RINGER'S 1,000 ML ONE; -MIDAZOLAM HCL 2 MG/2 ML VIAL ONE
== END ==
LOC: RAD 14:44
PROVIDERS: ATTEND Internal Medicine
DX: R05.9 Cough, unspecified (principal)
CPT/HCPCS: 71046

== ENCOUNTER 2024-09-25 17:52 | Inpatient (IN) | payer MEDICARE ==
[~2024-09-25] VITALS: Ht 165.1 cm; Wt 122.5 kg
[2024-09-25] MEDS ORDERED: SODIUM CHLORIDE 0.9% 1000ML 1,000 ML IV SCH (18:30)
[2024-09-25] MEDS ORDERED: ACETAMINOPHEN 325 MG TAB PO ONE (18:30)
[2024-09-25 18:38] LABS: BASOPHILS % 0.2 % (0.0-1.0); HEMATOCRIT 45.6 % (38.2-49.6); HEMOGLOBIN 15.5 g/dL (14.0-18.0); LYMPHOCYTES # (AUTO) 0.2 (1.0-3.2); LYMPHOCYTES % 4.8 % (18.0-39.1); MEAN CORPUSCULAR HEMOGLOBIN 32.1 pg (28-32); MEAN CORPUSCULAR VOLUME 94.4 fL (81-99); MONOCYTES % 0.4 % (4.4-11.3); NEUTROPHILS # (AUTO) 4.4 (2.1-6.9); NEUTROPHILS % 94.2 % (38.7-80.0); PLATELET COUNT 217 x10e3/uL (140-360); RED BLOOD COUNT 4.83 x10e6/uL (4.3-5.7); RED CELL DISTRIBUTION WIDTH 13.6 % (11.7-14.4); WHITE BLOOD COUNT 4.63 x10e3/uL (4.8-10.8)
[2024-09-25 18:48] LABS: PROTHROMBIN TIME 13.8 seconds (11.9-14.5)
[2024-09-25 18:49] LABS: PARTIAL THROMBOPLASTIN TIME 23.2 seconds (23.8-35.5)
[2024-09-25 18:58] LABS: ALBUMIN 4.2 g/dL (3.5-5.0); ALBUMIN/GLOBULIN RATIO 1.2 (0.8-2.0); ANION GAP 18.3 mmol/L (8-16); BILIRUBIN,TOTAL 0.8 mg/dL (0.2-1.2); CALCIUM 9.9 mg/dL (8.4-10.2); CREATININE, SERUM 1.38 mg/dL (0.72-1.25); POTASSIUM 4.3 mmol/L (3.5-5.1); TOTAL PROTEIN 7.8 g/dL (6.5-8.1)
[2024-09-25] MEDS ORDERED: IOPAMIDOL 370 MG/ML 100 ML INFUS..BTL INJ ONE (19:02)
[2024-09-25] MEDS: ONDANSETRON HCL INJ 2MG/ML 2ML 2 MG/ML VIAL IV STA (19:07)
[2024-09-25] MEDS: ACETAMINOPHEN 1000 MG/100 ML IV ONE (19:08)
[2024-09-25] MEDS: SODIUM CHLORIDE 0.9% IV ONE (19:09)
[2024-09-25] MEDS ORDERED: SODIUM CHLORIDE 0.9% 500ML 500 ML ONE (19:10)
[2024-09-25] MEDS: Morphine 4mg INJECTION 4 MG/ML INJ IV ONE (19:48)
[2024-09-25] MEDS ORDERED: DEXTROSE 50% SYRINGE 50 ML IV PRN (21:45)
[2024-09-25] MEDS ORDERED: ACETAMINOPHEN 1000 MG/100 ML IV PRN (21:45)
[2024-09-25 22:00] LABS: INFLUENZA A AG NEGATIVE (NEGATIVE)
[2024-09-25 22:01] LABS: CORONAVIRUS COVID-19 AG NEGATIVE (NEGATIVE); INFLUENZA B AG NEGATIVE (NEGATIVE)
[2024-09-25 22:04] LABS: BILIRUBIN,URINE NEGATIVE (NEGATIVE); CLARITY,URINE CLEAR (CLEAR); COLOR,URINE YELLOW (YELLOW); GLUCOSE, URINE NEGATIVE (NEGATIVE); KETONES,URINE NEGATIVE (NEGATIVE); LEUKOCYTE ESTERASE ,URINE NEGATIVE (NEGATIVE); NITRITE,URINE NEGATIVE (NEGATIVE); PH,URINE 5.5 (5 - 7); PROTEIN,URINE DIPSTICK 2+ (NEGATIVE); URINE UROBILINOGEN 0.2 mg/dL (0.2 - 1)
[2024-09-25 22:05] VITALS: PULSE 108; RESP 18; O2SAT 95
[2024-09-25] MEDS ORDERED: ONDANSETRON HCL INJ 2MG/ML 2ML 2 MG/ML VIAL IV PRN (22:15)
[2024-09-25 22:24] LABS: BACTERIA,URINE MANY /HPF; EPITHELIAL CELLS,URINE FEW /LPF
[2024-09-25] MEDS ORDERED: Morphine 2mg Syringe 2 MG/ML SYR IV PRN (22:30)
[2024-09-25] MEDS: METRONIDAZOLE 500MG/NS 100ML 100 ML IV SCH (22:30)
[2024-09-25] MEDS: SODIUM CHLORIDE 0.9% 1000ML 1,000 ML IV SCH (22:30)
[2024-09-25 23:00] VITALS: PULSE 109; RESP 17; TEMP 99.8
[2024-09-25 23:25] VITALS: BP 98/64; PULSE 108; RESP 18; RESP 22; TEMP 99; O2SAT 97
[2024-09-25 23:30] VITALS: BP 98/64; PULSE 108; RESP 18; TEMP 99; O2SAT 97
[2024-09-26] VITALS (10 sets, daily range): BP systolic 99–183; BP diastolic 57–122; PULSE 72–97; RESP 16–20; TEMP 97.7–98.8; O2SAT 96–100
[2024-09-26 08:08] LABS: BASOPHILS # (AUTO) 0.1 (0.0-0.1); BASOPHILS % 0.4 % (0.0-1.0); EOSINOPHILS % 18.5 % (0.0-6.0); HEMOGLOBIN 12.8 g/dL (14.0-18.0); LYMPHOCYTES # (AUTO) 0.1 (1.0-3.2); LYMPHOCYTES % 0.6 % (18.0-39.1); MEAN CORPUSCULAR HEMOGLOBIN 32.6 pg (28-32); MEAN CORPUSCULAR HGB CONC 33.7 g/dL (31-35); MEAN CORPUSCULAR VOLUME 96.7 fL (81-99); MONOCYTES # (AUTO) 0.4 (0.2-0.8); MONOCYTES % 1.8 % (4.4-11.3); NEUTROPHILS # (AUTO) 16.6 (2.1-6.9); NEUTROPHILS % 76.3 % (38.7-80.0); PLATELET COUNT 171 x10e3/uL (140-360); RED BLOOD COUNT 3.93 x10e6/uL (4.3-5.7); RED CELL DISTRIBUTION WIDTH 14.1 % (11.7-14.4); WHITE BLOOD COUNT 21.75 x10e3/uL (4.8-10.8)
[2024-09-26] MEDS: INSULIN REGULAR, HUMAN 100 UNIT/1 ML SQ SCH (08:11)
[2024-09-26 08:45] LABS: ALBUMIN/GLOBULIN RATIO 1.1 (0.8-2.0); ANION GAP 17.5 mmol/L (8-16); BILIRUBIN,TOTAL 0.6 mg/dL (0.2-1.2); CALCIUM 8.4 mg/dL (8.4-10.2); CREATININE, SERUM 1.5 mg/dL (0.72-1.25); POTASSIUM 4.5 mmol/L (3.5-5.1); TOTAL PROTEIN 5.8 g/dL (6.5-8.1)
[2024-09-26] MEDS ORDERED: METOPROLOL TARTRATE INJ 1 MG/ML VIAL IV PRN (09:15)
[2024-09-26] MEDS ORDERED: HYDRALAZINE HCL 20 MG/ML VIAL IV PRN (09:15)
[2024-09-26] MEDS: INSULIN GLARGINE 100 UNITS/ML VIAL SQ ONE (09:51)
[2024-09-26] MEDS: INSULIN LISPRO 100 UNIT/1 ML 3ML VIAL SQ ONE (09:52)
[2024-09-26] MEDS ORDERED: FENTANYL CITRATE/PF 100MCG/2 ML INJ ONE ×2 (12:09→13:00)
[2024-09-26] MEDS ORDERED: LIDOCAINE HCL 2% LOCAL INJ 5 ML SDV VIAL INJ ONE (12:09)
[2024-09-26] MEDS ORDERED: PROPOFOL IV EMULSION 10 MG/ML 20 ML VIAL ONE (12:09)
[2024-09-26] MEDS ORDERED: ROCURONIUM BROMIDE 1 ML IV ONE (12:09)
[2024-09-26] MEDS ORDERED: ONDANSETRON HCL INJ 2MG/ML 2ML 2 MG/ML VIAL ONE (12:36)
[2024-09-26] MEDS ORDERED: METOCLOPRAMIDE HCL 10 MG/2ML VIAL ONE (12:36)
[2024-09-26] MEDS ORDERED: ACETAMINOPHEN 1000 MG/100 ML 100 ML IV ONE (12:36)
[2024-09-26] MEDS ORDERED: SUGAMMADEX SODIUM 200 MG/2 ML VIAL IV ONE (12:59)
[2024-09-26] MEDS ORDERED: Morphine 2mg Syringe 2 MG/ML SYR IV PRN (14:30)
[2024-09-26] MEDS: LISINOPRIL 10 MG TAB PO SCH (17:04)
[2024-09-26] MEDS: METOPROLOL TARTRATE 50 MG TAB PO SCH (17:04)
[2024-09-26] MEDS: PRAVASTATIN 20 MG TAB PO SCH (21:18)
[2024-09-26] MEDS: SERTRALINE HCL 50 MG TAB PO SCH (21:18)
[2024-09-26] MEDS: ALLOPURINOL 300 MG TAB PO SCH (21:18)
[2024-09-26] MEDS: TEMAZEPAM 15 MG CAP PO SCH (21:18)
[2024-09-27] VITALS (10 sets, daily range): BP systolic 118–168; BP diastolic 74–89; PULSE 65–85; RESP 17–21; TEMP 97.8–98.5; O2SAT 96–99
[2024-09-27 10:59] LABS: BASOPHILS % 0.3 % (0.0-1.0); EOSINOPHILS # (AUTO) 0.1 (0.0-0.4); EOSINOPHILS % 0.9 % (0.0-6.0); HEMATOCRIT 36.7 % (38.2-49.6); HEMOGLOBIN 12.2 g/dL (14.0-18.0); LYMPHOCYTES # (AUTO) 0.5 (1.0-3.2); LYMPHOCYTES % 4.5 % (18.0-39.1); MEAN CORPUSCULAR HEMOGLOBIN 31.9 pg (28-32); MEAN CORPUSCULAR HGB CONC 33.2 g/dL (31-35); MEAN CORPUSCULAR VOLUME 95.8 fL (81-99); MONOCYTES # (AUTO) 0.4 (0.2-0.8); MONOCYTES % 3.7 % (4.4-11.3); NEUTROPHILS # (AUTO) 10.3 (2.1-6.9); NEUTROPHILS % 89.8 % (38.7-80.0); PLATELET COUNT 129 x10e3/uL (140-360); RED BLOOD COUNT 3.83 x10e6/uL (4.3-5.7); RED CELL DISTRIBUTION WIDTH 14.7 % (11.7-14.4); WHITE BLOOD COUNT 11.49 x10e3/uL (4.8-10.8)
[2024-09-27 11:17] LABS: ANION GAP 11.9 mmol/L (8-16); CALCIUM 7.8 mg/dL (8.4-10.2); CREATININE, SERUM 1.26 mg/dL (0.72-1.25); POTASSIUM 3.9 mmol/L (3.5-5.1)
[2024-09-27] MEDS ORDERED: SEVOFLURANE INHAL SOLN 250 ML PEN BTL ONE (13:04)
[2024-09-28] VITALS (10 sets, daily range): BP systolic 133–165; BP diastolic 70–97; PULSE 63–85; RESP 18–22; TEMP 97.9–99.4; O2SAT 96–100
[2024-09-28 06:54] LABS: BASOPHILS % 0.3 % (0.0-1.0); EOSINOPHILS # (AUTO) 0.1 (0.0-0.4); EOSINOPHILS % 0.8 % (0.0-6.0); HEMATOCRIT 35.7 % (38.2-49.6); HEMOGLOBIN 11.9 g/dL (14.0-18.0); LYMPHOCYTES # (AUTO) 0.6 (1.0-3.2); LYMPHOCYTES % 5.8 % (18.0-39.1); MEAN CORPUSCULAR HEMOGLOBIN 31.7 pg (28-32); MEAN CORPUSCULAR HGB CONC 33.3 g/dL (31-35); MEAN CORPUSCULAR VOLUME 95.2 fL (81-99); MONOCYTES # (AUTO) 0.5 (0.2-0.8); NEUTROPHILS # (AUTO) 9.5 (2.1-6.9); NEUTROPHILS % 87.3 % (38.7-80.0); PLATELET COUNT 128 x10e3/uL (140-360); RED BLOOD COUNT 3.75 x10e6/uL (4.3-5.7); RED CELL DISTRIBUTION WIDTH 14.5 % (11.7-14.4); WHITE BLOOD COUNT 10.83 x10e3/uL (4.8-10.8)
[2024-09-28 07:23] LABS: ANION GAP 11.9 mmol/L (8-16); CALCIUM 8.2 mg/dL (8.4-10.2); CREATININE, SERUM 0.97 mg/dL (0.72-1.25); POTASSIUM 3.9 mmol/L (3.5-5.1)
[2024-09-28] MEDS: GLIMEPIRIDE 2 MG TAB PO SCH (17:18)
[2024-09-28] MEDS: INSULIN GLARGINE 100 UNITS/ML VIAL SQ ONE ×2 (17:19→17:24)
[2024-09-29] VITALS: BP 128/62; PULSE 61; RESP 20; TEMP 97.9; O2SAT 100
[2024-09-29 04:00] VITALS: BP 144/73; PULSE 62; RESP 20; TEMP 96; O2SAT 97
[2024-09-29 06:53] LABS: BASOPHILS % 0.4 % (0.0-1.0); EOSINOPHILS # (AUTO) 0.1 (0.0-0.4); HEMATOCRIT 35.1 % (38.2-49.6); HEMOGLOBIN 11.7 g/dL (14.0-18.0); LYMPHOCYTES % 10.9 % (18.0-39.1); MEAN CORPUSCULAR HEMOGLOBIN 31.5 pg (28-32); MEAN CORPUSCULAR HGB CONC 33.3 g/dL (31-35); MEAN CORPUSCULAR VOLUME 94.4 fL (81-99); MONOCYTES # (AUTO) 0.6 (0.2-0.8); MONOCYTES % 7.2 % (4.4-11.3); NEUTROPHILS % 78.6 % (38.7-80.0); PLATELET COUNT 136 x10e3/uL (140-360); RED BLOOD COUNT 3.72 x10e6/uL (4.3-5.7); RED CELL DISTRIBUTION WIDTH 14.4 % (11.7-14.4); WHITE BLOOD COUNT 8.95 x10e3/uL (4.8-10.8)
[2024-09-29 07:26] LABS: ANION GAP 13.8 mmol/L (8-16); CREATININE, SERUM 0.86 mg/dL (0.72-1.25); POTASSIUM 3.8 mmol/L (3.5-5.1)
[2024-09-29 08:09] VITALS: PULSE 79; RESP 20; O2SAT 96
[2024-09-29 08:57] VITALS: BP 155/80; PULSE 63; RESP 20; TEMP 98.1; O2SAT 98
[2024-09-29 09:00] VITALS: BP 155/80; PULSE 63; RESP 20; TEMP 98.1; O2SAT 98
[2024-09-29 09:49] VITALS: BP 155/80; PULSE 63
== END 2024-09-29 11:40 | disposition home or self-care (01) | DRG 853 ==
LOC: ER 18:20 → ERHOLD 21:41 → MED/SURG3 22:29
PROVIDERS: ADMIT Internal Medicine; ATTEND Internal Medicine
PROC: 3E03329 Introduction of Other Anti-infective into Peripheral Vein, Percutaneous Approach (ICD-10-PCS; 2024-09-25)
PROC: 0DTJ4ZZ Resection of Appendix, Percutaneous Endoscopic Approach (ICD-10-PCS; principal; 2024-09-26 12:15)
DX: A41.89 Other specified sepsis (principal); K35.33 Acute appendicitis with perforation, localized peritonitis, and gangrene, with abscess; R65.21 Severe sepsis with septic shock; E87.20 Acidosis, unspecified; N39.0 Urinary tract infection, site not specified; N20.1 Calculus of ureter; K86.2 Cyst of pancreas; B96.89 Other specified bacterial agents as the cause of diseases classified elsewhere; I12.9 Hypertensive chronic kidney disease with stage 1 through stage 4 chronic kidney disease, or unspecified chronic kidney disease; E11.22 Type 2 diabetes mellitus with diabetic chronic kidney disease; N18.9 Chronic kidney disease, unspecified; Z79.84 Long term (current) use of oral hypoglycemic drugs; I25.10 Atherosclerotic heart disease of native coronary artery without angina pectoris; Z95.1 Presence of aortocoronary bypass graft; Z95.5 Presence of coronary angioplasty implant and graft; M10.9 Gout, unspecified; F41.8 Other specified anxiety disorders; M19.91 Primary osteoarthritis, unspecified site; K86.9 Disease of pancreas, unspecified; Z79.02 Long term (current) use of antithrombotics/antiplatelets; Z79.82 Long term (current) use of aspirin; Z79.899 Other long term (current) drug therapy
CPT/HCPCS: 36415; 71045; 74177; 80048; 80053; 81001; 82948; 83036; 83605; 85025; 85610; 85730; 87040; 87071; 87086; 87205; 88304; 93005; 94799; 99284; J1815; J2003; J2270; J2405; J2470; J2543; J2765; J7030; J7040; Q9967

== ENCOUNTER 2024-12-06 11:06 | Emergency (ER) | payer MEDICARE ==
[~2024-12-06] VITALS: Ht 165.1 cm; Wt 97.2 kg
[2024-12-06] MEDS ORDERED: CEFUROXIME500 MG PO (13:04)
[2024-12-06 13:17] VITALS: PULSE 59; RESP 17; TEMP 98.1; O2SAT 95
== END 2024-12-06 13:17 | disposition home or self-care (01) ==
LOC: FSED 11:32
DX: R31.9 Hematuria, unspecified (principal); N20.2 Calculus of kidney with calculus of ureter; N39.0 Urinary tract infection, site not specified; R10.32 Left lower quadrant pain; E11.65 Type 2 diabetes mellitus with hyperglycemia; I10 Essential (primary) hypertension; I25.10 Atherosclerotic heart disease of native coronary artery without angina pectoris; M19.09 Primary osteoarthritis, other specified site; M10.9 Gout, unspecified; G47.00 Insomnia, unspecified; F41.9 Anxiety disorder, unspecified; F32.A Depression, unspecified; Z95.1 Presence of aortocoronary bypass graft; Z95.5 Presence of coronary angioplasty implant and graft
CPT/HCPCS: 74176; 80048; 81003; 85025; 99283

== ENCOUNTER 2024-12-17 11:07 | Emergency (ER) | payer MEDICARE ==
[~2024-12-17] VITALS: Ht 165.1 cm; Wt 95.4 kg
[~2024-12-17 11:07] MED LIST changes: +CEFUROXIME500 MG PO
[2024-12-17 11:15] VITALS: PULSE 68; RESP 20; TEMP 98.3
[2024-12-17] MEDS ORDERED: IOPAMIDOL 370 MG/ML 100 ML INFUS..BTL INJ ONE (12:22)
[2024-12-17] MEDS: KETOROLAC TROMETHAMINE 30 MG/ML VIAL IV STA (12:28)
[2024-12-17] MEDS ORDERED: ACETAMINOPHEN-1 EAC3 PO (15:36)
[2024-12-17 15:48] VITALS: BP 166/77; PULSE 56; RESP 20; O2SAT 96
== END 2024-12-17 15:47 | disposition home or self-care (01) ==
LOC: FSED 11:10
DX: R10.32 Left lower quadrant pain (principal); N20.0 Calculus of kidney; K57.30 Diverticulosis of large intestine without perforation or abscess without bleeding; K76.0 Fatty (change of) liver, not elsewhere classified; E11.65 Type 2 diabetes mellitus with hyperglycemia; I10 Essential (primary) hypertension; I25.10 Atherosclerotic heart disease of native coronary artery without angina pectoris; M10.9 Gout, unspecified; G47.00 Insomnia, unspecified; F41.9 Anxiety disorder, unspecified; F32.A Depression, unspecified
CPT/HCPCS: 74160; 80053; 81003; 85025; 99283; J1885; Q9967

== ENCOUNTER 2025-01-06 15:57 | Inpatient (IN) | payer MEDICARE ==
[~2025-01-06] VITALS: Ht 165.1 cm; Wt 95.3 kg
[~2025-01-06 15:57] MED LIST changes: +ACETAMINOPHEN-1 EAC3 PO; +SEVOFLURANE INHAL SOLN 250 ML PEN BTL ONE
[2025-01-06 18:48] LABS: BASOPHILS % 0.4 % (0.0-1.0); EOSINOPHILS % 0.5 % (0.0-6.0); HEMOGLOBIN 15.4 g/dL (14.0-18.0); LYMPHOCYTES # (AUTO) 0.6 (1.0-3.2); LYMPHOCYTES % 8.1 % (18.0-39.1); MEAN CORPUSCULAR HGB CONC 34.2 g/dL (31-35); MEAN CORPUSCULAR VOLUME 93.4 fL (81-99); MONOCYTES # (AUTO) 0.5 (0.2-0.8); MONOCYTES % 6.4 % (4.4-11.3); NEUTROPHILS # (AUTO) 6.3 (2.1-6.9); NEUTROPHILS % 84.3 % (38.7-80.0); PLATELET COUNT 237 x10e3/uL (140-360); RED BLOOD COUNT 4.82 x10e6/uL (4.3-5.7); RED CELL DISTRIBUTION WIDTH 14.9 % (11.7-14.4); WHITE BLOOD COUNT 7.51 x10e3/uL (4.8-10.8)
[2025-01-06 18:53] LABS: BILIRUBIN,URINE SMALL (NEGATIVE); CLARITY,URINE SL CLOUDY (CLEAR); COLOR,URINE YELLOW (YELLOW); GLUCOSE, URINE 500 (NEGATIVE); KETONES,URINE TRACE (NEGATIVE); LEUKOCYTE ESTERASE ,URINE NEGATIVE (NEGATIVE); NITRITE,URINE NEGATIVE (NEGATIVE); PH,URINE 5.5 (5 - 7); PROTEIN,URINE DIPSTICK 2+ (NEGATIVE); URINE UROBILINOGEN 0.2 mg/dL (0.2 - 1)
[2025-01-06 19:01] LABS: BACTERIA,URINE FEW /HPF; RBC,URINE 0-5 /HPF (0-5)
[2025-01-06 19:06] LABS: ALBUMIN 3.5 g/dL (3.5-5.0); ALBUMIN/GLOBULIN RATIO 0.7 (0.8-2.0); ANION GAP 19.4 mmol/L (8-16); BILIRUBIN,TOTAL 2.5 mg/dL (0.2-1.2); CREATININE, SERUM 1.14 mg/dL (0.72-1.25); POTASSIUM 4.4 mmol/L (3.5-5.1); TOTAL PROTEIN 8.2 g/dL (6.5-8.1)
[2025-01-06] MEDS: SODIUM CHLORIDE 0.9% 1000ML 1,000 ML IV STA (19:37)
[2025-01-06] MEDS: ONDANSETRON HCL INJ 2MG/ML 2ML 2 MG/ML VIAL IV STA (19:37)
[2025-01-07] MEDS: SODIUM CHLORIDE 0.9% 1000ML 1,000 ML IV SCH (01:24)
[2025-01-07] MEDS: MAGNESIUM/ALUMINUM/SIMETHICONE 30 ML UDC PO STA (01:25)
[2025-01-07] MEDS: BELLADONNA ALK/PHENOBARBITAL 5 ML UDC PO ONE (01:49)
[2025-01-07] MEDS: LIDOCAINE VISC 2% SOLN 15 ML UDC PO STA (01:49)
[2025-01-07] MEDS ORDERED: DEXTROSE 50% SYRINGE 50 ML IV PRN (03:00)
[2025-01-07] MEDS: INSULIN REGULAR, HUMAN 100 UNIT/1 ML SQ SCH (07:28)
[2025-01-07 08:29] LABS: BASOPHILS % 0.5 % (0.0-1.0); EOSINOPHILS # (AUTO) 0.1 (0.0-0.4); EOSINOPHILS % 0.6 % (0.0-6.0); HEMATOCRIT 42.5 % (38.2-49.6); HEMOGLOBIN 14.4 g/dL (14.0-18.0); LYMPHOCYTES # (AUTO) 0.8 (1.0-3.2); LYMPHOCYTES % 8.5 % (18.0-39.1); MEAN CORPUSCULAR HEMOGLOBIN 31.9 pg (28-32); MEAN CORPUSCULAR HGB CONC 33.9 g/dL (31-35); MEAN CORPUSCULAR VOLUME 94.2 fL (81-99); MONOCYTES # (AUTO) 0.7 (0.2-0.8); MONOCYTES % 7.4 % (4.4-11.3); NEUTROPHILS # (AUTO) 7.3 (2.1-6.9); NEUTROPHILS % 82.7 % (38.7-80.0); PLATELET COUNT 216 x10e3/uL (140-360); RED BLOOD COUNT 4.51 x10e6/uL (4.3-5.7); RED CELL DISTRIBUTION WIDTH 15.1 % (11.7-14.4); WHITE BLOOD COUNT 8.83 x10e3/uL (4.8-10.8)
[2025-01-07 08:45] LABS: ALBUMIN/GLOBULIN RATIO 0.7 (0.8-2.0); BILIRUBIN,TOTAL 5.2 mg/dL (0.2-1.2); CREATININE, SERUM 0.88 mg/dL (0.72-1.25); TOTAL PROTEIN 7.1 g/dL (6.5-8.1)
[2025-01-07] MEDS ORDERED: GADOBENATE DIMEGLUMINE 1 ML IV ONE (09:13)
[2025-01-07 12:35] VITALS: PULSE 67; RESP 16; TEMP 98.1
[2025-01-07] MEDS ORDERED: ATORVASTATIN CA20 MG PO (15:06)
[2025-01-07] MEDS ORDERED: BENADRYL25 M1 PO (15:14)
[2025-01-07 15:43] VITALS: BP 165/88; O2SAT 100
[2025-01-07 16:36] VITALS: BP 152/94; PULSE 77; RESP 18; TEMP 97.8; O2SAT 99
[2025-01-07] MEDS: METOPROLOL TARTRATE 50 MG TAB PO SCH (17:08)
[2025-01-07 20:00] VITALS: BP 152/75; PULSE 58; RESP 18; TEMP 97.2; O2SAT 96
[2025-01-07] MEDS: SERTRALINE HCL 50 MG TAB PO SCH (21:03)
[2025-01-07] MEDS: ALLOPURINOL 300 MG TAB PO SCH (21:03)
[2025-01-07] MEDS: INSULIN GLARGINE 100 UNITS/ML VIAL SQ SCH (21:09)
[2025-01-08] VITALS (8 sets, daily range): BP systolic 137–158; BP diastolic 66–78; PULSE 52–64; RESP 18–20; TEMP 97.7–98.7; O2SAT 96–99
[2025-01-08] MEDS: TEMAZEPAM 15 MG CAP PO PRN (00:46)
[2025-01-08 05:22] LABS: BASOPHILS % 0.5 % (0.0-1.0); EOSINOPHILS # (AUTO) 0.1 (0.0-0.4); EOSINOPHILS % 1.2 % (0.0-6.0); HEMATOCRIT 39.1 % (38.2-49.6); HEMOGLOBIN 13.5 g/dL (14.0-18.0); LYMPHOCYTES # (AUTO) 0.9 (1.0-3.2); LYMPHOCYTES % 12.7 % (18.0-39.1); MEAN CORPUSCULAR HEMOGLOBIN 32.2 pg (28-32); MEAN CORPUSCULAR HGB CONC 34.5 g/dL (31-35); MEAN CORPUSCULAR VOLUME 93.3 fL (81-99); MONOCYTES # (AUTO) 0.6 (0.2-0.8); MONOCYTES % 7.8 % (4.4-11.3); NEUTROPHILS # (AUTO) 5.7 (2.1-6.9); NEUTROPHILS % 77.3 % (38.7-80.0); PLATELET COUNT 156 x10e3/uL (140-360); RED BLOOD COUNT 4.19 x10e6/uL (4.3-5.7); RED CELL DISTRIBUTION WIDTH 15.2 % (11.7-14.4); WHITE BLOOD COUNT 7.35 x10e3/uL (4.8-10.8)
[2025-01-08 05:39] LABS: ALBUMIN 2.8 g/dL (3.5-5.0); ALBUMIN/GLOBULIN RATIO 0.8 (0.8-2.0); ANION GAP 13.5 mmol/L (8-16); BILIRUBIN,TOTAL 2.4 mg/dL (0.2-1.2); CALCIUM 8.5 mg/dL (8.4-10.2); CREATININE, SERUM 0.77 mg/dL (0.72-1.25); POTASSIUM 3.5 mmol/L (3.5-5.1); TOTAL PROTEIN 6.5 g/dL (6.5-8.1)
[2025-01-09 04:00] VITALS: BP 141/65; PULSE 59; RESP 18; TEMP 97.7; O2SAT 97
[2025-01-09 05:10] LABS: CALCIUM 8.2 mg/dL (8.6-10.2)
[2025-01-09 07:58] VITALS: BP 158/77; PULSE 60; RESP 20; TEMP 98.3; O2SAT 99
[2025-01-09] MEDS ORDERED: PROPOFOL IV EMULSION 10 MG/ML 20 ML VIAL ONE (10:00)
[2025-01-09] MEDS ORDERED: LIDOCAINE HCL 2% LOCAL INJ 5 ML SDV VIAL INJ ONE (10:00)
[2025-01-09] MEDS ORDERED: FENTANYL CITRATE/PF 100MCG/2 ML INJ ONE (10:00)
[2025-01-09 10:33] VITALS: BP 158/77; PULSE 60; RESP 20; TEMP 98.3; O2SAT 99
[2025-01-09] MEDS ORDERED: ACETAMINOPHEN/CODEINE 300MG - 30MG TAB PO PRN (11:45)
[2025-01-09 15:18] VITALS: BP 153/86; PULSE 81; RESP 17; TEMP 97.9; O2SAT 98
[2025-01-09] MEDS: ONDANSETRON HCL INJ 2MG/ML 2ML 2 MG/ML VIAL IV PRN (17:34)
[2025-01-09] MEDS: Morphine 4mg INJECTION 4 MG/ML INJ IV PRN (17:34)
[2025-01-09] MEDS: PHENAZOPYRIDINE HCL 100 MG TAB PO PRN (17:45)
[2025-01-09 20:00] VITALS: BP 171/85; PULSE 82; RESP 18; TEMP 98.1; O2SAT 100
[2025-01-09] MEDS: TAMSULOSIN HCL 0.4 MG CAP PO SCH (20:58)
[2025-01-09 21:00] VITALS: BP 171/85; PULSE 82; RESP 18; TEMP 98.1; O2SAT 100
[2025-01-10] VITALS (8 sets, daily range): BP systolic 124–167; BP diastolic 66–79; PULSE 58–72; RESP 16–20; TEMP 97.7–98.1; O2SAT 96–100
[2025-01-10] MEDS ORDERED: SENNA-S TABLET PO SCH (09:00)
[2025-01-10] MEDS ORDERED: DEXTROSE 50% SYRINGE 50 ML IV PRN (09:00)
[2025-01-10 09:22] LABS: ALBUMIN 2.6 g/dL (3.5-5.0); ALBUMIN/GLOBULIN RATIO 0.8 (0.8-2.0); ANION GAP 14.7 mmol/L (8-16); BILIRUBIN,TOTAL 5.6 mg/dL (0.2-1.2); CREATININE, SERUM 0.86 mg/dL (0.72-1.25); POTASSIUM 3.7 mmol/L (3.5-5.1); TOTAL PROTEIN 5.9 g/dL (6.5-8.1)
[2025-01-10] MEDS: SENNA-S TABLET PO PRN (10:01)
[2025-01-10] MEDS ORDERED: IOPAMIDOL 370 MG/ML 100 ML INFUS..BTL INJ ONE (12:32)
[2025-01-10] MEDS: INSULIN LISPRO 100 UNIT/1 ML 3ML VIAL SQ SCH ×2 (12:45)
[2025-01-11] VITALS (7 sets, daily range): BP systolic 116–152; BP diastolic 69–84; PULSE 57–80; RESP 18–20; TEMP 97.7–98.1; O2SAT 95–100
[2025-01-11 10:25] LABS: BASOPHILS % 0.2 % (0.0-1.0); EOSINOPHILS # (AUTO) 0.1 (0.0-0.4); EOSINOPHILS % 1.2 % (0.0-6.0); HEMATOCRIT 34.6 % (38.2-49.6); HEMOGLOBIN 11.3 g/dL (14.0-18.0); LYMPHOCYTES # (AUTO) 0.6 (1.0-3.2); LYMPHOCYTES % 9.4 % (18.0-39.1); MEAN CORPUSCULAR HEMOGLOBIN 31.6 pg (28-32); MEAN CORPUSCULAR HGB CONC 32.7 g/dL (31-35); MEAN CORPUSCULAR VOLUME 96.6 fL (81-99); MONOCYTES # (AUTO) 0.4 (0.2-0.8); MONOCYTES % 7.1 % (4.4-11.3); NEUTROPHILS # (AUTO) 4.9 (2.1-6.9); NEUTROPHILS % 81.8 % (38.7-80.0); PLATELET COUNT 156 x10e3/uL (140-360); RED BLOOD COUNT 3.58 x10e6/uL (4.3-5.7); RED CELL DISTRIBUTION WIDTH 15.8 % (11.7-14.4); WHITE BLOOD COUNT 5.93 x10e3/uL (4.8-10.8)
[2025-01-11 11:01] LABS: ALBUMIN 2.5 g/dL (3.5-5.0); ALBUMIN/GLOBULIN RATIO 0.8 (0.8-2.0); ANION GAP 13.9 mmol/L (8-16); BILIRUBIN,TOTAL 6.2 mg/dL (0.2-1.2); CALCIUM 7.9 mg/dL (8.4-10.2); CREATININE, SERUM 0.92 mg/dL (0.72-1.25); POTASSIUM 3.9 mmol/L (3.5-5.1); TOTAL PROTEIN 5.8 g/dL (6.5-8.1)
[2025-01-11] MEDS ORDERED: HYDROMORPHONE 1MG/1ML INJ IV PRN (16:00)
[2025-02-02] MEDS ORDERED: LANTUS 3ML100 UNITS/ SQ (14:44)
[2025-02-02] MEDS ORDERED: FLOMAX0.4 MG PO (14:44)
[2025-02-02] MEDS ORDERED: HUMALOG KW200 UNIT/1 SQ (14:44)
[2025-02-02] MEDS ORDERED: ONDANSETRON ODT8 MG PO (14:44)
[2025-02-02] MEDS ORDERED: FINASTERIDE5 MG PO (14:44)
== END 2025-01-11 21:43 | disposition other institution (70) | DRG 659 ==
LOC: ER 17:46 → ERHOLD 19:39 → MED/SURG 01-07 14:31
PROVIDERS: ADMIT Internal Medicine; ATTEND Internal Medicine
PROC: BT141ZZ Fluoroscopy of Kidneys, Ureters and Bladder using Low Osmolar Contrast (ICD-10-PCS; 2025-01-09)
PROC: 0TC68ZZ Extirpation of Matter from Right Ureter, Via Natural or Artificial Opening Endoscopic (ICD-10-PCS; principal; 2025-01-09 10:16)
PROC: 0T768DZ Dilation of Right Ureter with Intraluminal Device, Via Natural or Artificial Opening Endoscopic (ICD-10-PCS; 2025-01-09 10:16)
DX: N13.2 Hydronephrosis with renal and ureteral calculous obstruction (principal); K83.1 Obstruction of bile duct; K85.90 Acute pancreatitis without necrosis or infection, unspecified; C25.0 Malignant neoplasm of head of pancreas; Q61.3 Polycystic kidney, unspecified; E11.65 Type 2 diabetes mellitus with hyperglycemia; R74.8 Abnormal levels of other serum enzymes; K76.0 Fatty (change of) liver, not elsewhere classified; R31.0 Gross hematuria; I10 Essential (primary) hypertension; I25.10 Atherosclerotic heart disease of native coronary artery without angina pectoris; E66.9 Obesity, unspecified; Z68.34 Body mass index [BMI] 34.0-34.9, adult; F32.A Depression, unspecified; M19.90 Unspecified osteoarthritis, unspecified site; M10.9 Gout, unspecified; Z79.82 Long term (current) use of aspirin; Z79.84 Long term (current) use of oral hypoglycemic drugs; Z95.1 Presence of aortocoronary bypass graft; Z95.5 Presence of coronary angioplasty implant and graft; Z88.8 Allergy status to other drugs, medicaments and biological substances
CPT/HCPCS: 36415; 71260; 74170; 74176; 74183; 74420; 80053; 81001; 81003; 82947; 82948; 83036; 83690; 83970; 84443; 84550; 85025; 86301; 88300; 96372; 99284; C1758; C1769; C2617; J1171; J1815; J2003; J2270; J2405; J2470; J2543; J7030; Q9967

== ENCOUNTER → 2025-02-04 | Day surgery (SDC) | payer MEDICARE ==
[2025-02-03 10:10] LABS: BASOPHILS % 0.2 % (0.0-1.0); EOSINOPHILS % 1.7 % (0.0-6.0); LYMPHOCYTES % 12.4 % (18.0-39.1); MONOCYTES % 8.6 % (4.4-11.3); NEUTROPHILS % 76.6 % (38.7-80.0); RED CELL DISTRIBUTION WIDTH 15.5 % (11.7-14.4)
[2025-02-03 10:45] LABS: EST GLOMERULAR FILTRATION RATE 60.0 ML/MIN (>=60)
[~2025-02-04] MED LIST changes: +ATORVASTATIN CA20 MG PO; +BENADRYL25 M1 PO; +EPHEDRINE SULFATE INJ 50 MG/ML VIAL ONE; +FENTANYL CITRATE/PF 100MCG/2 ML INJ ONE; +FINASTERIDE5 MG PO; +FLOMAX0.4 MG PO; +HUMALOG KW200 UNIT/1 SQ; +LANTUS 3ML100 UNITS/ SQ; +LIDOCAINE HCL 2% LOCAL INJ 5 ML SDV VIAL INJ ONE; +ONDANSETRON HCL INJ 2MG/ML 2ML 2 MG/ML VIAL ONE; +ONDANSETRON ODT8 MG PO; +PHENYLEPHRINE HCL 1% 10 MG/ML VIAL ONE; +PROPOFOL IV EMULSION 10 MG/ML 20 ML VIAL ONE
[2025-02-04] MEDS: CEFTRIAXONE 1 GM VIAL ONE ×2 (06:05→06:06)
[2025-02-04] MEDS: SODIUM CHLORIDE 0.9% 1000ML 1,000 ML ONE (06:05)
[2025-02-04] MEDS: GENTAMICIN 80MG/NS 100 ML 200 ML IV ONE (06:07)
[2025-02-04] MEDS: PHENAZOPYRIDINE HCL 100 MG TAB ONE (08:30)
[2025-02-04 08:35] VITALS: TEMP 97.8
[2025-02-04 09:00] VITALS: BP 125/68; PULSE 68; RESP 18; O2SAT 99
== END | disposition home or self-care (01) ==
LOC: OR 05:24
PROVIDERS: ATTEND Urology
DX: N20.0 Calculus of kidney (principal); Z46.6 Encounter for fitting and adjustment of urinary device; N40.1 Benign prostatic hyperplasia with lower urinary tract symptoms; N13.8 Other obstructive and reflux uropathy; N28.89 Other specified disorders of kidney and ureter; N13.30 Unspecified hydronephrosis; R39.14 Feeling of incomplete bladder emptying; N20.1 Calculus of ureter; R80.9 Proteinuria, unspecified; C25.9 Malignant neoplasm of pancreas, unspecified; E11.9 Type 2 diabetes mellitus without complications; I25.2 Old myocardial infarction; I25.810 Atherosclerosis of coronary artery bypass graft(s) without angina pectoris; I10 Essential (primary) hypertension; E78.5 Hyperlipidemia, unspecified; M19.90 Unspecified osteoarthritis, unspecified site; F41.9 Anxiety disorder, unspecified; F32.A Depression, unspecified; Z88.6 Allergy status to analgesic agent; Z01.810 Encounter for preprocedural cardiovascular examination; Z01.812 Encounter for preprocedural laboratory examination; Z01.818 Encounter for other preprocedural examination; Z79.60 Long term (current) use of unspecified immunomodulators and immunosuppressants; Z79.82 Long term (current) use of aspirin; Z79.84 Long term (current) use of oral hypoglycemic drugs; Z79.4 Long term (current) use of insulin; Z79.899 Other long term (current) drug therapy; Z68.32 Body mass index [BMI] 32.0-32.9, adult; Z95.5 Presence of coronary angioplasty implant and graft; Z95.1 Presence of aortocoronary bypass graft
CPT/HCPCS: 36415 ×2; 52352; 71046; 74018; 74420; 80048; 82948; 84550; 85025; 87086; 88300; 93005; C1758; C1769; J0696; J1580; J2003; J2371; J2704; J3010; J7030; J2405

== ENCOUNTER 2025-03-11 19:27 | Inpatient (IN) | payer MEDICARE ==
[~2025-03-11] VITALS: Ht 165.1 cm; Wt 91.2 kg
[~2025-03-11 19:27] MED LIST changes: -EPHEDRINE SULFATE INJ 50 MG/ML VIAL ONE; -FENTANYL CITRATE/PF 100MCG/2 ML INJ ONE; -LIDOCAINE HCL 2% LOCAL INJ 5 ML SDV VIAL INJ ONE; -ONDANSETRON HCL INJ 2MG/ML 2ML 2 MG/ML VIAL ONE; -PHENYLEPHRINE HCL 1% 10 MG/ML VIAL ONE; -PROPOFOL IV EMULSION 10 MG/ML 20 ML VIAL ONE; -SEVOFLURANE INHAL SOLN 250 ML PEN BTL ONE
[2025-03-11 19:58] LABS: BASOPHILS % 0.2 % (0.0-1.0); EOSINOPHILS % 0.0 % (0.0-6.0); LYMPHOCYTES % 4.2 % (18.0-39.1); MONOCYTES % 5.4 % (4.4-11.3); NEUTROPHILS % 89.5 % (38.7-80.0); RED CELL DISTRIBUTION WIDTH 15.5 % (11.7-14.4)
[2025-03-11 20:07] LABS: LEUKOCYTE ESTERASE ,URINE NEGATIVE (NEGATIVE); PROTEIN,URINE DIPSTICK 2+ (NEGATIVE); URINE UROBILINOGEN 1 mg/dL (0.2 - 1)
[2025-03-11 20:14] LABS: WBC,URINE (MAN) 0-5 /HPF (0-5)
[2025-03-11 20:15] LABS: EPITHELIAL CELLS,URINE FEW /LPF
[2025-03-11 20:17] LABS: EST GLOMERULAR FILTRATION RATE 59.0 ML/MIN (>=60)
[2025-03-11] MEDS: SODIUM CHLORIDE 0.9% 1000ML 1,000 ML IV ONE (20:17)
[2025-03-11 20:20] LABS: CORONAVIRUS COVID-19 AG NEGATIVE (NEGATIVE)
[2025-03-11] MEDS ORDERED: IOPAMIDOL 370 MG/ML 100 ML INFUS..BTL INJ ONE (20:35)
[2025-03-11] MEDS ORDERED: DEXTROSE 50% SYRINGE 50 ML IV PRN (23:00)
[2025-03-11] MEDS ORDERED: ONDANSETRON HCL INJ 2MG/ML 2ML 2 MG/ML VIAL IV PRN (23:00)
[2025-03-11 23:46] VITALS: PULSE 64; RESP 20; TEMP 98
[2025-03-11 23:54] VITALS: PULSE 62; RESP 16; O2SAT 99
[2025-03-12] VITALS (13 sets, daily range): BP systolic 111–148; BP diastolic 60–76; PULSE 58–84; RESP 16–20; TEMP 97.7–98.7; O2SAT 97–100
[2025-03-12] MEDS: SODIUM CHLORIDE 0.9% 1000ML 1,000 ML IV SCH (00:43)
[2025-03-12] MEDS: METRONIDAZOLE 500MG/NS 100ML 100 ML IV SCH (00:43)
[2025-03-12 05:11] LABS: BLAST CELLS % MANUAL 2; LYMPHOCYTES % (MANUAL) 5 % (19-48); MONOCYTES % (MANUAL) 5 % (3.4-9.0); MYELOCYTES % (MANUAL) 2 % (0-0); NEUTROPHILS % (MANUAL) 86 % (40-74)
[2025-03-12 05:13] LABS: PLATELET ESTIMATE ADEQUATE; PLATELET MORPHOLOGY COMMENT NORMAL; RBC MORPHOLOGY COMMENT ABNORMAL
[2025-03-12 05:14] LABS: BASOPHILS % 0.3 % (0.0-1.0); EOSINOPHILS % 0.7 % (0.0-6.0); LYMPHOCYTES % 12.0 % (18.0-39.1); MONOCYTES % 8.4 % (4.4-11.3); NEUTROPHILS % 78.3 % (38.7-80.0); RED CELL DISTRIBUTION WIDTH 15.3 % (11.7-14.4)
[2025-03-12 05:47] LABS: EST GLOMERULAR FILTRATION RATE 85.0 ML/MIN (>=60)
[2025-03-12] MEDS ORDERED: INSULIN REGULAR, HUMAN 100 UNIT/1 ML SQ SCH (07:30)
[2025-03-12] MEDS ORDERED: HYDROCODONE/APAP 7.5MG-325MG 1 EA TAB PO PRN (08:15)
[2025-03-12] MEDS ORDERED: ACETAMINOPHEN 325 MG TAB PO PRN (08:15)
[2025-03-12] MEDS ORDERED: ONDANSETRON HCL INJ 2MG/ML 2ML 2 MG/ML VIAL IV PRN (08:15)
[2025-03-12] MEDS ORDERED: DEXTROSE 50% SYRINGE 50 ML IV PRN (08:15)
[2025-03-12 08:58] LABS: EOSINOPHILS % (MANUAL) 2 % (0-7); LYMPHOCYTES % (MANUAL) 20 % (19-48); MONOCYTES % (MANUAL) 5 % (3.4-9.0); NEUTROPHILS % (MANUAL) 73 % (40-74); PLATELET ESTIMATE SLIGHTLY DECREASED; PLATELET MORPHOLOGY COMMENT NORMAL; RBC MORPHOLOGY COMMENT NORMAL
[2025-03-12] MEDS: METOPROLOL TARTRATE 50 MG TAB PO SCH (09:00)
[2025-03-12] MEDS ORDERED: LISINOPRIL 10 MG TAB PO SCH (09:00)
[2025-03-12] MEDS: FINASTERIDE 5 MG TAB PO SCH (09:00)
[2025-03-12] MEDS: INSULIN LISPRO 100 UNIT/1 ML 3ML VIAL SQ SCH ×2 (11:30)
[2025-03-12] MEDS ORDERED: SEVOFLURANE INHAL SOLN 250 ML PEN BTL ONE (13:18)
[2025-03-12] MEDS ORDERED: ROCURONIUM BROMIDE 0 ML IV ONE (13:18)
[2025-03-12] MEDS ORDERED: PROPOFOL IV EMULSION 10 MG/ML 20 ML VIAL ONE ×2 (13:18→14:28)
[2025-03-12] MEDS ORDERED: LIDOCAINE HCL 2% LOCAL INJ 5 ML SDV VIAL INJ ONE ×2 (13:18→14:28)
[2025-03-12] MEDS ORDERED: FENTANYL CITRATE/PF 100MCG/2 ML INJ ONE ×2 (13:18→14:29)
[2025-03-12] MEDS ORDERED: ROCURONIUM BROMIDE 1 ML IV ONE (14:29)
[2025-03-12] MEDS ORDERED: SUCCINYLCHOLINE CHLORIDE 20 MG/ML 10ML VIAL ONE (14:29)
[2025-03-12] MEDS ORDERED: ONDANSETRON HCL INJ 2MG/ML 2ML 2 MG/ML VIAL ONE (15:03)
[2025-03-12] MEDS ORDERED: METOCLOPRAMIDE HCL 10 MG/2ML VIAL ONE (15:03)
[2025-03-12] MEDS: TEMAZEPAM 15 MG CAP PO SCH (20:52)
[2025-03-12] MEDS: ALLOPURINOL 300 MG TAB PO SCH (20:52)
[2025-03-12] MEDS: DIPHENHYDRAMINE HCL 25 MG CAP PO PRN (20:52)
[2025-03-12] MEDS: SERTRALINE HCL 50 MG TAB PO SCH (20:52)
[2025-03-12] MEDS: INSULIN GLARGINE 100 UNITS/ML VIAL SQ SCH (20:58)
[2025-03-13 04:15] VITALS: BP 142/69; PULSE 66; RESP 18; TEMP 97.5; O2SAT 100
[2025-03-13 08:05] VITALS: BP 142/69; PULSE 66; RESP 18; TEMP 97.5; O2SAT 100
[2025-03-13 09:26] VITALS: BP 143/74; PULSE 66; RESP 18; TEMP 98.2; O2SAT 98
[2025-03-13 14:26] LABS: BASOPHILS % 0.5 % (0.0-1.0); EOSINOPHILS % 1.5 % (0.0-6.0); LYMPHOCYTES % 21.2 % (18.0-39.1); MONOCYTES % 15.3 % (4.4-11.3); NEUTROPHILS % 61.0 % (38.7-80.0); RED CELL DISTRIBUTION WIDTH 15.6 % (11.7-14.4)
[2025-03-13 17:03] VITALS: BP 158/71; PULSE 60; RESP 18; TEMP 98.7; O2SAT 100
[2025-03-13 21:52] VITALS: BP 162/75; PULSE 53; RESP 18; TEMP 97.8; O2SAT 100
[2025-03-13] MEDS: HYDRALAZINE HCL 20 MG/ML VIAL IV PRN (22:11)
[2025-03-13 23:32] VITALS: BP 124/50; PULSE 58; RESP 20; TEMP 97.7; O2SAT 100
[2025-03-14 05:36] VITALS: BP 130/56; PULSE 52; RESP 18; TEMP 97.5; O2SAT 100
[2025-03-14 08:21] VITALS: BP 142/64; PULSE 56; RESP 18; TEMP 98.2; O2SAT 100
[2025-03-14 08:22] VITALS: BP 142/64; PULSE 56; RESP 18; TEMP 98.2; O2SAT 100
[2025-03-14 10:04] LABS: EST GLOMERULAR FILTRATION RATE 89.0 ML/MIN (>=60)
[2025-03-14] MEDS: POTASSIUM CHLORIDE 20 MEQ TAB CR PO SCH (11:37)
[2025-03-14 15:29] VITALS: BP 166/73; PULSE 54; RESP 18; TEMP 98.4; O2SAT 100
[2025-03-14 20:29] VITALS: BP_SYST 155; BP_SYST 166; BP_DIAS 71; BP_DIAS 73; PULSE 56; RESP 18; TEMP 97.3; O2SAT 100
[2025-03-15 06:42] VITALS: BP 160/72; PULSE 54; RESP 18; TEMP 97.1; O2SAT 99
[2025-03-15 08:48] VITALS: BP 156/80; PULSE 60; RESP 17; TEMP 98.2; O2SAT 100
[2025-03-15 08:49] VITALS: BP 156/80; PULSE 60; RESP 17; TEMP 98.2; O2SAT 100
== END 2025-03-15 10:14 | disposition home or self-care (01) | DRG 919 ==
LOC: ER 19:43 → ERHOLD 23:03 → MED/SURG 03-12 00:01
PROVIDERS: ADMIT Internal Medicine; ATTEND Internal Medicine
PROC: 0F9980Z Drainage of Common Bile Duct with Drainage Device, Via Natural or Artificial Opening Endoscopic (ICD-10-PCS; 2025-03-12)
PROC: 0FPB80Z Removal of Drainage Device from Hepatobiliary Duct, Via Natural or Artificial Opening Endoscopic (ICD-10-PCS; principal; 2025-03-12 14:48)
DX: T85.590A Other mechanical complication of bile duct prosthesis, initial encounter (principal); K83.1 Obstruction of bile duct; C25.9 Malignant neoplasm of pancreas, unspecified; K83.09 Other cholangitis; E87.20 Acidosis, unspecified; N17.9 Acute kidney failure, unspecified; C24.0 Malignant neoplasm of extrahepatic bile duct; R31.9 Hematuria, unspecified; I10 Essential (primary) hypertension; I25.10 Atherosclerotic heart disease of native coronary artery without angina pectoris; F41.8 Other specified anxiety disorders; M19.90 Unspecified osteoarthritis, unspecified site; M10.9 Gout, unspecified; G47.00 Insomnia, unspecified; D63.0 Anemia in neoplastic disease; E66.9 Obesity, unspecified; E86.0 Dehydration; D70.1 Agranulocytosis secondary to cancer chemotherapy; T45.1X5A Adverse effect of antineoplastic and immunosuppressive drugs, initial encounter; K83.8 Other specified diseases of biliary tract; E11.65 Type 2 diabetes mellitus with hyperglycemia; I16.0 Hypertensive urgency; Z87.442 Personal history of urinary calculi; Z11.52 Encounter for screening for COVID-19; Z79.60 Long term (current) use of unspecified immunomodulators and immunosuppressants; Z95.1 Presence of aortocoronary bypass graft; Z95.5 Presence of coronary angioplasty implant and graft; Z79.4 Long term (current) use of insulin; Z79.84 Long term (current) use of oral hypoglycemic drugs; Z79.82 Long term (current) use of aspirin; Z88.8 Allergy status to other drugs, medicaments and biological substances; Y92.009 Unspecified place in unspecified non-institutional (private) residence as the place of occurrence of the external cause
CPT/HCPCS: 36415; 43260; 71045; 74018; 74177; 74328; 80053; 80076; 81001; 82948; 83690; 85025; 87040; 87086; 94799; 99284; J0330; J0360; J2003; J2405; J2470; J2543; J2765; J7030; Q9967

== ENCOUNTER → 2025-04-07 | Outpatient (REF) | payer MEDICARE ==
[~2025-04-07] MED LIST changes: +FUROSEMIDE INJ 10 MG/ML 4 ML VIAL ONE
== END ==
LOC: NM 08:10
PROVIDERS: ATTEND Urology
DX: N13.30 Unspecified hydronephrosis (principal); T19.1XXA Foreign body in bladder, initial encounter
CPT/HCPCS: 78708; A9562; J1938